=== PATIENT | female | born 1935 | race Caucasian/White ===

== ENCOUNTER 2016-08-20 00:39 | Inpatient (IN) | payer MEDICARE, OTHER ==
[2016-08-20] VITALS (18 sets, daily range): BP systolic 117–170; BP diastolic 54–79; PULSE 77–95; RESP 14–21; Ht 160 cm; Wt 54.2 kg
[~2016-08-20] VITALS: Ht 160 cm; Wt 54.2 kg
[2016-08-20] MEDS ORDERED: ONDANSETRON 4 MG INJ IV STA (00:41)
[2016-08-20] MEDS ORDERED: HYDROmorphONE 1 MG/ML SYG IV STA ×4 (00:41→03:52)
--- NOTE | 2016-08-20 00:59 | RADRPT ---
PROCEDURE: XR Chest. CLINICAL INDICATION: Fall, pain TECHNIQUE: Single frontal view of the chest was obtained. COMPARISON: None. FINDINGS: The cardiomediastinal silhouette is normal size. Pulmonary vasculature is within normal limits. Th ere is moderate aortic calcification. There is left mid lung atelectasis or scarring. There is min imal right base atelectasis. There are irregular densities projecting in the right mid lung, measur ing up to 3.2 cm and 1.3 cm, and a possible density in the left lower lung, approximately 1.4 cm.. No signs of pleural fluid or pneumothorax are seen. The osseous structures and soft tissues are unre markable. IMPRESSION: 1. Moderate aortic calcification. 2. No visualized fracture or pneumothorax. 3. Lobulated appearing densities projecting in the right midlung and left lower lung, up to 3.2 cm adjacent to the right hilum. These are nonspecific in appearance, possibly reflecting calcific pleu ral plaques. CT examination is suggested to exclude underlying parenchymal lesion. RPTAT: HBST .Fabricio Kim MD, Date Time Electronically viewed and signed by .Fabricio Kim MD, on 08/20/2016 00:59 .T/
[2016-08-20] MEDS ORDERED: ONDANSETRON 4 MG INJ IV ONE (01:00)
--- NOTE | 2016-08-20 01:16 | RADRPT ---
PROCEDURE: XR Hip. CLINICAL INDICATION: Fall, hip pain TECHNIQUE: 2 views of the left hip were performed. COMPARISON: None. FINDINGS: Intertrochanteric left femur fracture with approximate 90 degrees varus deformity. No left hip disl ocation is seen. IMPRESSION: Intertrochanteric left femur fracture with approximate 90 degrees varus deformity. RPTAT: HJES .Lj Stock MD, Date Time Electronically viewed and signed by .Lj Stock MD, on 08/20/2016 01:16 .S/
[2016-08-20] MEDS ORDERED: SOD CHLORIDE 0.9% 1,000 ML IV SCH (02:09)
--- NOTE | 2016-08-20 02:15 | ERA ---
ER Documentation Chief Complaint Date/Time DATE: 08/20/16 TIME: 02:13 Chief Complaint fall onto left hip rotation and shortening HPI This is a 81-year-old female who was walking to the couch prior to arrival and she lost her balance and tripped and fell to her left hip. The patient is complaining of sharp pain to her left hip is worse with movement. There is no head injury or loss of consciousness. Denies headache neck pain chest pain other extremity pain. She was brought in by EMS. ROS All systems reviewed and are negative except as per history of present illness. Allergies Allergies: Coded Allergies: No Known Allergy (Unverified , 08/20/16) PMhx/Soc History of Surgery: Yes ( hemorrhoid repair 1 week ago) Anesthesia Reaction: No Hx Neurological Disorder: No Hx Respiratory Disorders: Yes (lung CA) Hx Cardiac Disorders: No Hx Psychiatric Problems: No Hx Miscellaneous Medical Probl: Yes (stage 4 lung CA/lymphoma, DM) Hx Alcohol Use: No Hx Substance Use: No Hx Tobacco Use: No Smoking Status: Unknown if ever smoked FmHx Family History: No coronary disease Physical Exam Vitals Vital Signs Date Time Temp Pulse Resp B/P Pulse Ox O2 Delivery O2 Flow Rate FiO2 08/20/16 01:50 74 16 125/70 99 Nasal Cannula 3.0 08/20/16 01:06 69 28 130/74 96 Physical Exam Const: Well-developed, well-nourished Head: Atraumatic, normocephalic Eyes: Normal Conjunctiva, PERRLA, EOMI, normal sclera, no nystagmus ENT: Normal External Ears, Nose and Mouth, moist mucus membranes. Neck: Full range of motion. No meningismus, no lymphadenopathy. Resp: Clear to auscultation bilaterally, no wheezing, rhonchi, rales Cardio: Regular rate and rhythm, no murmurs, S1 S2 present Abd: Soft, non tender x 4, non distended. Normal bowel sounds, no guarding or rebound, no pulsitile abdominal masses or bruits Skin: No petechiae or rashes, no ecchymosis , no maculopapular rash Back: No midline or flank tenderness Ext: No cyanosis, or edema, FROM x 3, there is tenderness at the left hip, the left leg is externally rotated and shortened there is no move in the left hip due to pain, normal inspection, neurovascularly intact x 4 Neur: Awake and alert, STR 5/5 x 4, sensation intact x 4, no focal findings, cerebellum intact Psych: Normal Mood and Affect Results 24 hrs Current Medications Medications (Trade) Dose Ordered Sig/Michael Route PRN Reason Start Time Stop Time Status Last Admin Dose Admin Ondansetron HCl (Zofran Inj) 4 mg ONCE ONCE IV 08/20/16 01:00 08/20/16 01:01 DC Hydromorphone HCl (Dilaudid) 1 mg ONCE STAT IV 08/20/16 00:41 08/20/16 00:44 DC 08/20/16 01:03 Ondansetron HCl (Zofran Inj) 4 mg ONCE STAT IV 08/20/16 00:41 08/20/16 00:44 DC 08/20/16 01:04 Hydromorphone HCl (Dilaudid) 0.5 mg ONCE STAT IV 08/20/16 00:59 08/20/16 01:00 DC 08/20/16 01:05 Hydromorphone HCl 1 mg 1 mg ONCE STAT IV 08/20/16 01:25 08/20/16 01:26 DC 08/20/16 01:28 Sodium Chloride (NS) 1,000 ml @ 80 mls/hr [id number] IV 08/20/16 02:09 08/20/16 14:38 Ondansetron HCl (Zofran Inj) 4 mg BRIDGE ORDER PRN IV NAUSEA AND/OR VOMITING 08/20/16 02:30 08/21/16 02:29 Acetaminophen (Tylenol Tab) 650 mg ER BRIDGE PRN PO MILD PAIN/FEVER 08/20/16 02:30 08/21/16 02:29 Procedures/MDM EKG: Rate/Rhythm: Normal Sinus Rhythm,NL intervals QRS, ST, QT: NORMAL TN, QRS, QT] Impression: NORMAL EKG PROCEDURE: XR Hip. CLINICAL INDICATION: Fall, hip pain TECHNIQUE: 2 views of the left hip were performed. COMPARISON: None. FINDINGS: Intertrochanteric left femur fracture with approximate 90 degrees varus deformity. No left hip dislocation is seen. IMPRESSION: Intertrochanteric left femur fracture with approximate 90 degrees varus deformity. RPTAT: HJES .Lj Stock MD, MD Date Time Electronically viewed and signed by .Lj Stock MD, MD on 08/20/2016 01:16 .S/ CC: UYEN GUILLEN DO PROCEDURE: XR Chest. CLINICAL INDICATION: Fall, pain TECHNIQUE: Single frontal view of the chest was obtained. COMPARISON: None. FINDINGS: The cardiomediastinal silhouette is normal size. Pulmonary vasculature is within normal limits. There is moderate aortic calcification. There is left mid lung atelectasis or scarring. There is minimal right base atelectasis. There are irregular densities projecting in the right mid lung, measuring up to 3.2 cm and 1.3 cm, and a possible density in the left lower lung, approximately 1.4 cm.. No signs of pleural fluid or pneumothorax are seen. The osseous structures and soft tissues are unremarkable. IMPRESSION: 1. Moderate aortic calcification. 2. No visualized fracture or pneumothorax. 3. Lobulated appearing densities projecting in the right midlung and left lower lung, up to 3.2 cm adjacent to the right hilum. These are nonspecific in appearance, possibly reflecting calcific pleural plaques. CT examination is suggested to exclude underlying parenchymal lesion. 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 CONDE Departure Diagnosis: Primary Impression: Hip fracture, left Qualified Code: S72.002A - Hip fracture, left, closed, initial encounter Condition: Stable UYEN GUILLEN DO August 20, 2016 02:15
[2016-08-20] MEDS ORDERED: ACETAMINOPHEN 325 MG TAB PO PRN (02:30)
[2016-08-20] MEDS ORDERED: ONDANSETRON 4 MG INJ IV PRN ×3 (02:30→19:00)
[2016-08-20 03:43] LABS: ADD SCAN DIFF NO
[2016-08-20 03:54] LABS: BASOPHILS % 0.1 % (0.0-2.0); EOSINOPHILS # 0.1 10^3/ul (0.0-0.5); EOSINOPHILS % 1.3 % (0.0-7.0); HEMATOCRIT 33.9 % (37.0-47.0); HEMOGLOBIN 10.9 g/dl (12.0-16.0); LYMPHOCYTES # 0.6 10^3/ul (0.8-2.9); LYMPHOCYTES % 8.5 % (15.0-51.0); MEAN CORPUSCULAR HEMOGLOBIN 30.1 pg (29.0-33.0); MEAN CORPUSCULAR HGB CONC 32.2 g/dl (32.0-37.0); MEAN CORPUSCULAR VOLUME 93.6 fl (82.0-101.0); MEAN PLATELET VOLUME 9.6 fl (7.4-10.4); MONOCYTE # 0.4 10^3/ul (0.3-0.9); MONOCYTES % 5.9 % (0.0-11.0); NEUTROPHIL # 6.2 10^3/ul (1.6-7.5); NEUTROPHILS % 83.8 % (39.0-77.0); PLATELET COUNT 173 10^3/UL (140-415); RED BLOOD COUNT 3.62 10^6/ul (4.20-5.40); RED CELL DISTRIBUTION WIDTH 13.7 % (11.5-14.5); WHITE BLOOD COUNT 7.4 10^3/ul (4.8-10.8)
[2016-08-20 04:01] LABS: ALBUMIN 3.1 g/dl (3.3-4.9)
[2016-08-20 04:02] LABS: POTASSIUM 3.6 mmol/L (3.5-5.1)
[2016-08-20 04:03] LABS: INR 1.05; PROTIME 13.7 Sec (12.2-14.2); PT RATIO 1.1
[2016-08-20 04:04] LABS: BILIRUBIN,INDIRECT 0.1 mg/dl (0-1.1); BILIRUBIN,TOTAL 0.1 mg/dl (0.2-1.3); CREATININE 0.65 mg/dl (0.44-1.00); PARTIAL THROMBOPLASTIN TIME 27.3 Sec (25.0-35.0); TOTAL PROTEIN 5.8 g/dl (6.1-8.1)
[2016-08-20 04:05] LABS: CALCIUM 7.7 mg/dl (8.4-10.2)
[2016-08-20] MEDS ORDERED: HYDROmorphONE 1 MG/ML SYG IV PRN ×3 (05:30→19:00)
[2016-08-20] MEDS: morphine 4 MG/ML VIAL IV PRN (06:01)
--- NOTE | 2016-08-20 06:01 | HP ---
Date/Time of Note Date/Time of Note DATE: 08/20/16 TIME: 05:49 Assessment/Plan VTE Prophylaxis VTE Prophylaxis Intervention: SCD's Lines/Catheters Urinary Cath still in place: Yes Reason Cath still needed: other (indicate) Assessment/Plan Assessment/Plan IMPRESSION 1. Left hip fracture s/p mechanical fall 2. HTN 3. Diabetes 4. History of Lung cancer PLAN pain mgmt Awaiting Ortho eval, consulted in ER Will place a cardiology consult for clearance as needed. Adjust BP meds needed Insulin for glycemic control while in-house HPI/ROS Admit Date/Time Admit Date/Time August 20, 2016 at 02:09 ROS This is a 81-year-old female with hx of HTN, DM, lung cancer who presented to ER after tripping and falling at home. She was walking to to sit in a sofa when she tripped and fell landing to her left side experiencing pain in her hip area. She denied chest pain, palpitations, lightheadedness prior to fall. Denied head injury or loss of consciousness. When she presented to ER, she was found to have left hip fracture. . PMH/Family/Social Past Medical History Medical History: diabetes, hypertension, other (lung cancer) Past Surgical History Past Surgical Hx: other (cataract surgery) Social History Alcohol Use: none Smoking Status: Unknown if ever smoked Drug Use: none Exam/Review of Systems Vital Signs Vitals Vital Signs Date Time Temp Pulse Resp B/P Pulse Ox O2 Delivery O2 Flow Rate FiO2 08/20/16 05:45 Nasal Cannula 2.0 08/20/16 04:25 97.5 77 20 140/79 93 Exam Constitutional: alert, other (in some distress due to left hip pain) Head: atraumatic, normocephalic Eyes: EOMI, PERRL Respiratory: clear to auscultation, normal air movement Cardiovascular: nl pulses, regular rate and rhythm Gastrointestinal: non-tender, soft Musculoskeletal: other (left hip tenderness. Range of motion limited) Extremities: normal pulses Labs Result Diagram: 08/20/16 0320 08/20/16 0320 Medications Medications Current Medications Sodium Chloride (NS) 1,000 ml @ 80 mls/hr [id number] IV Last administered on t 02:22; Admin Dose 80 MLS/HR; Start 08/20/16 at 02:09; Stop 08/20/16 at 14:38 Morphine Sulfate (morphine) 4 mg Q4H PRN IV pain; Start 08/20/16 at 05:30; Status UNV Hydromorphone HCl (Dilaudid) 0.5 mg Q3 PRN IV PAIN- if morphine ineffective; Start 08/20/16 at 05:30; Status UNV Ondansetron HCl (Zofran Inj) 4 mg Q6H PRN IV NAUSEA AND/OR VOMITING; Start 08/20 at 05:30; Status UNV Insulin Glargine (Lantus) 10 unit DAILY@08 SC ; Start 08/20/16 at 08:00; Status UNV Miscellaneous Information (* Miscellaneous Pharmacy Order) HYPOGLYCEMIA PROTOCOL w... ONCE ONCE XX ; Start 08/20/16 at 05:30; Stop 08/20/16 at 05:31; Status UNV Miscellaneous Information (* Miscellaneous Pharmacy Order) Discontinue Glyburide , Glipizide,... ONCE ONCE XX ; Start 08/20/16 at 05:30; Stop 08/20/16 at 05:31; Status UNV Miscellaneous Information (* Miscellaneous Pharmacy Order) Discontinue all previ... ONCE ONCE XX ; Start 08/20/16 at 05:30; Stop 08/20/16 at 05:31; Status UNV Diagnostic Test (Pha) (Accu-Chek) XX ; Start 08/21/16 at 02:00; Status UNV LAUREN CONDE MD August 20, 2016 05:59
[2016-08-20] MEDS ORDERED: LORAZEPAM 2 MG INJ ONE (07:13)
[2016-08-20] MEDS ORDERED: LORAZEPAM 2 MG INJ IV ONE (07:30)
[2016-08-20] MEDS: INSULIN ASPART [NOVOLOG] 3 ML PEN SC SCH ×4 (08:10→21:00)
[2016-08-20] MEDS: HYDROmorphONE 1 MG/ML SYG IV STA ×2 (08:17→09:07)
[2016-08-20] MEDS: INSULIN GLARGINE [LANtus] 3 ML PEN SC SCH (08:50)
[2016-08-20 12:23] LABS: CREATINE KINASE 40 IU/L (23-200)
[2016-08-20 12:32] LABS: CK-MB 0.42 ng/ml (0.0-2.4)
[2016-08-20 12:35] LABS: TROPONIN-I < 0.012 ng/ml (0.00-0.12)
[2016-08-20] MEDS: DEXTROSE 5%-0.45% NACL 1,000 ML IV SCH ×2 (12:37→22:55)
[2016-08-20] MEDS ORDERED: KETOROLAC 30 MG INJ IV STA (12:41)
[2016-08-20] MEDS ORDERED: ALBUTEROL/IPRATROPIUM (NEB) 3 ML AMP HHN PRN (13:00)
[2016-08-20] MEDS: LORAZEPAM 2 MG INJ IV PRN ×2 (13:00→22:50)
[2016-08-20 14:57] LABS: CREATINE KINASE 194 IU/L (23-200)
[2016-08-20 15:07] LABS: CK-MB 1.62 ng/ml (0.0-2.4)
[2016-08-20] MEDS: HYDROmorphONE 1 MG/ML SYG IV PRN ×2 (15:12→21:07)
[2016-08-20 15:14] LABS: ADD UMIC YES; URINE BILIRUBIN (Dip) NEGATIVE (NEGATIVE); URINE BLOOD (Dip) 3+ (NEGATIVE); URINE COLOR LT. YELLOW (YELLOW); URINE GLUCOSE (Dip) NEGATIVE (NEGATIVE); URINE KETONES (Dip) NEGATIVE (NEGATIVE); URINE LEUKOCYTE ESTERASE (Dip) NEGATIVE (NEGATIVE); URINE NITRITE (Dip) NEGATIVE (NEGATIVE); URINE TOTAL PROTEIN (Dip) NEGATIVE (NEGATIVE); URINE UROBILINOGEN (Dip) 0.2 E.U./dL (0.1-1.0)
[2016-08-20 15:15] LABS: TROPONIN-I < 0.012 ng/ml (0.00-0.12)
[2016-08-20 15:26] LABS: BACTERIA,URINE RARE; SQUAMOUS EPITHELIAL CELL,UR OCCASIONAL
[2016-08-20] MEDS ORDERED: METHYLPREDNISOLONE 125 MG INJ IV ONE (17:00)
[2016-08-20] MEDS: DOCUSATE SODIUM 250 MG CAP PO SCH (17:00)
[2016-08-20] MEDS: ALBUTEROL/IPRATROPIUM (NEB) 3 ML AMP HHN SCH ×2 (17:00→21:35)
--- NOTE | 2016-08-20 17:20 | RADRPT ---
Echocardiogram Report Patient Name: SULMA COE Gender: Female Date: 1935 Study Date: 20-Aug-2016 Mangle Roll Operator: Yogi Monterroso [facility] Location: [address] Ref. Physician: DALIA KAUR Quality: Good Procedures: Transthoracic echocardiogram with complete 2D, M-Mode, and doppler examination. Indications: Pre-op. 2D/M Mode Doppler Measurement Value Normal Ranges Measurement Value Normal Ranges LVIDd 2D 4.8 3.5 - 5.6 cm AV Peak Daniel 1.9 m/sec LVIDs 2D 2.8 2.1 - 4.1 cm AV Peak PG 13.8 mmHg LVPWd 2D 0.7 0.6 - 1.1 cm AI Peak PG 62.0 mmHg IVSd 2D 0.6 0.6 - 1.1 cm AI Peak Daniel 3.9 m/sec AoR Diam 2D 2.5 2.0 - 3.7 cm AI PHT 373.6 msec EDV 2D 107.0 cm3 LVOT Peak Daniel 1.4 m/sec ESV 2D 21.0 cm3 LVOT Peak PG 7.5 mmHg LA Dimen 2D 2.7 2.3 - 4.0 cm MV E Peak Daniel 0.8 m/sec MV A Peak Daniel 1.1 m/sec MV E/A 0.7 MV Decel Time 224 msec MV Decel [place] 3 MV E/A 0.7 TR Peak Daniel 2.1 m/sec TR Peak PG 17.3 mmHg RVSP 20.0 mmHg Findings Left Ventricle: Normal left ventricular systolic function. Normal left ventricular cavity size. Normal left ventricular wall thickness. Ejection fraction is visually estimated at 65 %. Tissue Doppler/Mitral Doppler indices are consistent with impaired relaxation (Stage I diastolic dysfunction). Right Ventricle: Normal right ventricular size. Normal right ventricular systolic function. Left Atrium: The left atrium is normal in size. Right Atrium: The right atrium is normal in size. Mitral Valve: Normal appearance and function of the mitral valve with trace physiologic regurgitation. Aortic Valve: No hemodynamically significant aortic stenosis by doppler. Aortic cusps appear mildly calcified. Mild aortic valve regurgitation. Tricuspid Valve: Normal appearance of the tricuspid valve. Estimated peak PA systolic pressure 20 mmHg. There is mild tricuspid regurgitation. Pulmonic Valve: Pulmonic valve not well visualized. There is trace pulmonic regurgitation. Pericardium: Normal pericardium with no significant pericardial effusion. Aorta: Normal aortic root. IVC: Normal size and normal respiratory collapse consistent with normal right atrial pressure. Conclusions 1.Normal left ventricular systolic function. Normal left ventricular cavity size. Normal left ventricular wall thickness. Ejection fraction is visually estimated at 65 %. Tissue Doppler/Mitral Doppler indices are consistent with impaired relaxation (Stage I diastolic dysfunction). 2.Normal appearance and function of the mitral valve with trace physiologic regurgitation. 3.No hemodynamically significant aortic stenosis by doppler. Aortic cusps appear mildly calcified. Mild aortic valve regurgitation. 4.Normal appearance of the tricuspid valve. Estimated peak PA systolic pressure 20 mmHg. There is mild tricuspid regurgitation. 5.Normal size and normal respiratory collapse consistent with normal right atrial pressure. Electronically Signed By: Scotty Justice 20-Aug-2016 17:19:13 -0700 Patient Name: SULMA COE Study Date: 20-Aug-2016 [id number]
--- NOTE | 2016-08-20 17:27 | CONS ---
DATE OF ADMISSION: 08/20/2016 DATE OF CONSULTATION: 08/20/2016 TYPE OF CONSULTATION: Cardiology. REASON FOR CONSULTATION: Cardiovascular preop evaluation. SURGICAL PROBLEM: Hip fracture. MEDICAL PROBLEMS: Diabetes, hypertension and history of lung carcinoma. HISTORY OF PRESENT ILLNESS: Thank you for this referral. History obtained from the patient, kesha nash with multiple family members including the son, daughter and at the bedside, discussed with the staff and Dr. Camarillo. The patient is an 81-year-old female with history of "stage IV lung cancer" status post chemo, diabetes, hypertension who came to emergency room after a fall. Accordi ng to the patient and the family, the patient apparently was moving from one ___to the other one and probably has tripped and fell down. No syncope or presyncope per family. She has been in severe p ain. She has been scheduled for the surgery today. The patient denies any chest pain or pressure t o me at this time. Apparently, in the past 2 weeks, she has had "bronchitis," has been wheezing and short of breath. Exercise tolerance very limited and is not able to walk more than a block without stopping, mostly due to her "spinal injury" and back pain. She denies any history of cardiac disor lizz to me or history of anesthesia problems. Apparently has had surgery in the past 2 weeks for hem orrhoid surgery with no anesthesia complication per family's report. PAST MEDICAL HISTORY: Diabetes, hypertension, history of lung cancer stage IV, history of probably COPD, history of hemorrhoids, status post surgery. PAST SURGICAL HISTORY: Status post cataract surgery, hemorrhoid surgery. SOCIAL HISTORY: The patient has quit smoking. FAMILY HISTORY: Patient's father with coronary artery disease and HI. ALLERGIES: NO REPORTED ALLERGIES. MEDICATIONS: As per medication reconciliation, personally reviewed. REVIEW OF SYSTEMS: As above mentioned, although has back pain. PHYSICAL EXAMINATION: VITAL SIGNS: Temperature 98.6, heart rate of 95, blood pressure 125/68, respiration rate of 20, sat urating 93%. HEENT: Normocephalic, atraumatic. Thin female. Pupils are equal. GENERAL: Appears to be anxious, but in no acute distress. CARDIOVASCULAR: Regular rate and rhythm, systolic murmur. PULMONARY: With diffuse wheezes heard throughout the lungs. GASTROINTESTINAL: Soft, nontender. EXTREMITIES: With no significant lower extremity edema. NEUROLOGIC: Awake and alert. PSYCHIATRIC: Anxious and angry. LABORATORY: Sodium 139, potassium 3.6, BUN of 11, creatinine 0.65, glucose 163, hemoglobin A1c is 6 .6, albumin is 3.1. Troponin negative x2. WBC of 7.4, hemoglobin 10.9, platelets 173. Chest x-ray shows moderate aortic calcification, no visualized fracture or pneumothorax. Lobulated appearing d ensity projecting in the right mid lung and left lower lung. Hip x-ray shows intertrochanteric left femoral fracture. EKG was personally reviewed and on my personal review shows normal sinus rhythm, probably right atrial enlargement, otherwise no evidence of ischemia. Echocardiogram is still pend ing. ASSESSMENT AND PLAN: 1. Cardiovascular preop evaluation. 2. Left hip fracture. 3. Status post fall with no evidence of syncope per family's report. 4. Hypertension, under good control. 5. Diabetes, under reasonable control. 6. History of dyslipidemia. 7. History of chronic obstructive pulmonary disease with probably acute bronchitis and chronic obst ructive pulmonary disease exacerbation. 8. History of stage IV lung cancer. 9. Severe hip pain secondary to above. RECOMMENDATIONS: Echocardiogram is pending. It will be done and evaluated personally. Unless any significant contraindication is the seen on the echo, no further cardiac workup would be indicated p rior to the surgery. The patient has no signs or symptoms of congestive heart failure and denies an y anginal chest pain to me and it has no history of coronary artery disease. It was explained to th e patient and family member including the son and who were presents that the patient would b e at moderate risk of cardiovascular event due to her risk factors including advanced age and especi ally diabetes and her poor functional capacity. However, no further cardiac workup would be felt to be beneficial to the patient or would be expected to lower her risk of cardiovascular event. Kaleigh zacarias, however, does have severe pulmonary disease and actively wheezing. At this point, I do recommen d her to be evaluated by pulmonary and optimized from the pulmonary standpoint prior to the surgery. I have discussed the case with Dr. Camarillo, who will evaluate the patient from the pulmonary stand point. Thank you for this referral. We will continue to follow along with you. Dictated By: WILBERTO DARLING/LOBO Conf#: [id number] DID#: [id number] CC: LAUREN CONDE MD;*End*
[2016-08-20] MEDS ORDERED: MIDAZOLAM 1 MG/ML 2 ML INJ ONE ×2 (18:05)
[2016-08-20] MEDS ORDERED: DEXAMETHASONE 4 MG/ML 1 ML INJ ONE (18:57)
[2016-08-20] MEDS ORDERED: ONDANSETRON 4 MG INJ ONE (18:58)
[2016-08-20] MEDS ORDERED: LABETALOL HCL 20MG INJ IV PRN (19:00)
[2016-08-20] MEDS ORDERED: hydrALAzine 20 MG INJ IV PRN (19:00)
[2016-08-20] MEDS ORDERED: EPHEDrine SULFATE 50 MG/5 ML SYG IV PRN (19:00)
[2016-08-20] MEDS ORDERED: NALOXONE (0.4 MG/ML) INJ IV PRN (19:00)
[2016-08-20] MEDS ORDERED: MEPERIDINE 25 MG INJ IV PRN (19:00)
[2016-08-20] MEDS ORDERED: DIPHENHYDRAMINE 50 MG INJ IV PRN (19:00)
[2016-08-20] MEDS ORDERED: METOCLOPRAMIDE 10 MG INJ IV PRN (19:00)
[2016-08-20] MEDS ORDERED: FENTAnyl 50 MCG/ML VIAL IV PRN ×2 (19:00)
[2016-08-20] MEDS ORDERED: HYDROmorphONE (0.2 MG/ML) 10ML SYG IV PRN ×2 (19:00)
[2016-08-20] MEDS ORDERED: POLYMYXIN/BACITRACIN 1L IRRIG ONE (19:17)
[2016-08-20] MEDS: CEFAZOLIN 1 GM/50 ML (PMX) 50 ML IVPB SCH ×2 (19:39→20:00)
[2016-08-20] MEDS: SALMETEROL/FLUTICASONE 250/50 INHA INH SCH (21:06)
--- NOTE | 2016-08-20 21:52 | CONS ---
DATE OF ADMISSION: 08/20/2016 DATE OF CONSULTATION: TYPE OF CONSULTATION: Pulmonary. REASON FOR CONSULTATION: Preop evaluation. Thank you, Dr. Yost, for this consultation. HISTORY OF PRESENT ILLNESS: This is an 81-year-old lady who had a mechanical fall at home, sustaini ng severe pain in her left hip. X-ray confirmed left intertrochanteric femoral fracture with 90-deg ree varus deformity. The patient is now pending orthopedic surgery. I have been consulted for preo p evaluation. Upon further questioning, the patient states she had a significant tobacco history in the past, previously 2 packs per day, quit smoking in the early 1970s. 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 Per patient, she underwent treatment with Rituxan with no radiation with significant improvement in her overall condition. Since that time, she has had no recurrence, remains in remission. She states she does not require supplemental O2 on ambulation. Prior to this fall, she was able to walk at length without any respiratory limitations. She was recently prescri bed inhaler use for mild exertional dyspnea but has not seen a tile designer or had a chest x-ray ot her than recent admission x-ray here. PAST MEDICAL HISTORY: Includes: 1. Remote extensive tobacco history. 2. Lymphoma. 3. Hypertension. 4. Hyperlipidemia. MEDICATIONS: Per chart. ALLERGIES: NONE. SOCIAL HISTORY: She is an ex-smoker. No alcohol, no history of drug use. FAMILY HISTORY: Noncontributory. SYSTEMS REVIEW: Twelve-point review of systems negative other than that mentioned above. PHYSICAL EXAMINATION: GENERAL: Elderly-appearing lady, appears comfortable at rest. No acute distress. VITAL SIGNS: Currently afebrile, pulse is 90, blood pressure 125/68, O2 saturation 96% on 2 L nasal cannula. NECK: Supple. No JVD, lymphadenopathy. CARDIAC: S1, S2. No added sounds or murmurs. CHEST: Diminished air entry bilaterally. ABDOMEN: Soft, nontender. No guarding, rebound. EXTREMITIES: No cyanosis, clubbing, edema. NEUROLOGIC: Generalized weakness. LABORATORY DATA: White count 7.4, hemoglobin 10.9, platelets of 173. BUN 11, creatinine 0.65. INR 1.05. EKG showed no acute abnormalities. Chest x-ray was reviewed, shows moderate aortic calcification, lobulated appearance in the right mid lung and left lower lobe, possible calcified pleural plaques. IMPRESSION AND PLAN: 1. Mechanical fall with hip fracture. 2. History of lymphoma. 3. Status post chemotherapy. 4. History of diabetes. The patient will require: 1. The patient is stable from pulmonary standpoint to proceed with orthopedic surgery. At this poi nt, no further optimization of her respiratory status is likely possible other than continuing curre nt bronchodilator therapy. 2. Awaiting cardiology clearance preoperatively. 3. Postoperatively, I explained to the family there is a chance that the patient will come out on m echanical ventilation, requiring mechanical ventilation hopefully only overnight with plan to safely extubate tomorrow. Given her extensive prior tobacco history and history of pulmonary malignancy, there is a chance that immediate extubation may not be possible. Family understands and patient is aware. Dictated By: JOHAN SINGH/LOBO Conf#: [id number] DID#: [id number]
[2016-08-21] VITALS: BP 138/76; PULSE 80; RESP 16
[2016-08-21] MEDS: ALBUTEROL/IPRATROPIUM (NEB) 3 ML AMP HHN SCH ×6 (01:00→21:00)
[2016-08-21] MEDS: ACCU-CHEK XX SCH (02:00)
[2016-08-21] MEDS: morphine 4 MG/ML VIAL IV PRN ×2 (02:34→20:46)
[2016-08-21] MEDS: HYDROmorphONE 1 MG/ML SYG IV PRN ×3 (04:49→13:27)
[2016-08-21] MEDS: CEFAZOLIN 1 GM/50 ML (PMX) 50 ML IVPB SCH ×3 (05:36→21:07)
[2016-08-21 07:06] LABS: ADD SCAN DIFF NO
[2016-08-21 07:16] LABS: HEMATOCRIT 30.7 % (37.0-47.0); HEMOGLOBIN 9.9 g/dl (12.0-16.0); LYMPHOCYTES # 0.8 10^3/ul (0.8-2.9); LYMPHOCYTES % 15.6 % (15.0-51.0); MEAN CORPUSCULAR HEMOGLOBIN 29.6 pg (29.0-33.0); MEAN CORPUSCULAR HGB CONC 32.2 g/dl (32.0-37.0); MEAN CORPUSCULAR VOLUME 91.6 fl (82.0-101.0); MEAN PLATELET VOLUME 9.8 fl (7.4-10.4); MONOCYTE # 0.4 10^3/ul (0.3-0.9); NEUTROPHIL # 3.7 10^3/ul (1.6-7.5); NEUTROPHILS % 75.2 % (39.0-77.0); PLATELET COUNT 154 10^3/UL (140-415); RED BLOOD COUNT 3.35 10^6/ul (4.20-5.40); RED CELL DISTRIBUTION WIDTH 13.7 % (11.5-14.5); WHITE BLOOD COUNT 4.9 10^3/ul (4.8-10.8)
[2016-08-21 07:25] LABS: ALBUMIN/GLOBULIN RATIO 1.2; BILIRUBIN,INDIRECT 0.1 mg/dl (0-1.1); BILIRUBIN,TOTAL 0.1 mg/dl (0.2-1.3); CALCIUM 7.8 mg/dl (8.4-10.2); CREATININE 0.51 mg/dl (0.44-1.00); POTASSIUM 3.8 mmol/L (3.5-5.1); TOTAL PROTEIN 5.5 g/dl (6.1-8.1)
[2016-08-21 07:39] LABS: MAGNESIUM 1.5 mg/dl (1.7-2.5); PHOSPHORUS 3.5 mg/dl (2.5-4.9)
[2016-08-21] MEDS: HYDROCODONE/APAP (5/325) TAB PO PRN ×3 (08:15→21:09)
[2016-08-21] MEDS: DOCUSATE SODIUM 250 MG CAP PO SCH (08:15)
[2016-08-21 08:18] VITALS: BP 176/77; RESP 18
[2016-08-21] MEDS: INSULIN GLARGINE [LANtus] 3 ML PEN SC SCH (08:21)
[2016-08-21] MEDS: SALMETEROL/FLUTICASONE 250/50 INHA INH SCH ×2 (08:22→20:51)
[2016-08-21] MEDS: INSULIN ASPART [NOVOLOG] 3 ML PEN SC SCH ×4 (08:22→20:51)
[2016-08-21 09:14] LABS: AADO2 Arterial 62.1 mmHg (7.0-24.0); Allen Test ACCEPTAB; Arterial Base Excess -0.5 mmol/L (-3.0-3); Arterial COHb 0.3 % (0.0-3.0); Arterial Fraction of Oxyhgb 96.3 % (93.0-99.0); Arterial HCO3 23.1 mmol/L (22.0-26.0); Arterial MetHb 0.3 % (0.0-1.5); Arterial Total Hemglobin 11.2 g/dl (12.0-18.0); MODE NASAL CANNULA
[2016-08-21] MEDS ORDERED: ENOXAPARIN 30 MG/0.3 ML SYG SC SCH (10:30)
--- NOTE | 2016-08-21 10:30 | CONS ---
Date/Time of Note Date/Time of Note DATE: 08/21/16 TIME: 10:28 Assessment/Plan Assessment/Plan Additional Assessment/Plan HEENT exam is; supple neck, no JVD. No lymphadenopathy. Midline trachea. No thyromegaly. Pharynx is clear. Chest examination; clear to auscultation. No added sound. S1-S2 audible, no murmurs. Regular rhythm. Abdomen examination; soft, non-distended. No organomegaly. Bowel sounds audible. Extremity examination; no peripheral edema. There is dressing applied over left hip area. 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 Assessment recommendations; 1. Patient admitted with left femoral neck fracture status post ORIF under spinal anesthesia yesterday with stable postop course. 2. History of lymphoma. 3. History of hypertension. Next #3. History of prior smoking. Continue current treatment. Patient responding well to current treatment regimen. We will sign off. Thanks for the referral. Consultation Date/Type/Reason Admit Date/Time August 20, 2016 at 02:09 Initial Consult Date Type of Consultation: Pulmonary 24 HR Interval Summary Free Text/Dictation Patient doing very well. Underwent left hip open reduction and fixation under spinal anesthesia. Complains of mild pain at surgical site. Denies any shortness of breath, fever, abdominal pain, nausea vomiting. General exam; elderly lady, awake alert currently in no distress. Exam/Review of Systems Vital Signs Vitals Vital Signs Date Time Temp Pulse Resp B/P Pulse Ox O2 Delivery O2 Flow Rate FiO2 08/21/16 08:18 98.4 87 18 176/77 98 08/21/16 05:19 3.0 08/21/16 05:19 Nasal Cannula Intake and Output 08/20/16 08/20/16 08/21/16 15:00 23:00 07:00 Intake Total 1650 ml 1080 ml Output Total 600 ml 480 ml Balance 1050 ml 600 ml Results Result Diagram: 08/21/16 0630 08/21/16 0630 Results 24 hrs Laboratory Tests Test 08/20/16 11:52 08/20/16 13:14 08/20/16 13:45 08/20/16 17:05 Bedside Glucose 111 129 Urine Color LT. YELLOW Urine Clarity CLEAR Urine pH 5.0 Urine Specific [place] >=1.030 H Urine Ketones NEGATIVE Urine Nitrite NEGATIVE Urine Bilirubin NEGATIVE Urine Urobilinogen 0.2 E.U./dL Urine Leukocyte Esterase NEGATIVE Urine Microscopic RBC 10-25 Urine Microscopic WBC 2-5 Urine Squamous Epithelial Cells OCCASIONAL Urine Bacteria RARE Urine Hemoglobin 3+ H Urine Glucose NEGATIVE Urine Total Protein NEGATIVE Creatine Kinase 194 # Creatine Kinase Index 0.8 Creatinine Kinase MB (Mass) 1.62 Troponin I < 0.012 Test 08/20/16 21:05 08/21/16 06:30 08/21/16 07:00 08/21/16 08:02 Bedside Glucose 177 178 White Blood Count 4.9 # Red Blood Count 3.35 L Hemoglobin 9.9 L Hematocrit 30.7 L Mean Corpuscular Volume 91.6 Mean Corpuscular Hemoglobin 29.6 Mean Corpuscular Hemoglobin Concent 32.2 Red Cell Distribution Width 13.7 Platelet Count 154 Mean Platelet Volume 9.8 Neutrophils % 75.2 Lymphocytes % 15.6 Monocytes % 9.0 Eosinophils % 0.0 Basophils % 0.0 Nucleated Red Blood Cells % 0.0 Neutrophils # 3.7 Lymphocytes # 0.8 Monocytes # 0.4 Eosinophils # 0.0 Basophils # 0.0 Nucleated Red Blood Cells # 0.0 Sodium Level 131 L Potassium Level 3.8 Chloride Level 104 Carbon Dioxide Level 24 Anion Gap 7 L Blood Urea Nitrogen 8 Creatinine 0.51 Glucose Level 193 Calcium Level 7.8 L Phosphorus Level 3.5 Magnesium Level 1.5 L Total Bilirubin 0.1 L Direct Bilirubin 0.00 Indirect Bilirubin 0.1 Aspartate Amino Transf (AST/SGOT) 20 Alanine Aminotransferase (ALT/SGPT) 34 Alkaline Phosphatase 52 Total Protein 5.5 L Albumin 3.0 L Globulin 2.50 Albumin/Globulin Ratio 1.20 Blood Gas Specimen Source Blood arterial Arterial Blood Date Drawn 08/21/2016 8:45:37 AM Arterial Blood pH (Temp corrected) 7.444 Arterial Blood pCO2 (Temp correct) 34.5 L Arterial Blood pO2 (Temp corrected) 89.6 Arterial Blood HCO3 23.1 Arterial Blood Base Excess -0.5 Arterial Blood Oxygen Saturation 96.9 Ramiro Test ACCEPTAB Arterial Blood Gas Puncture Site Left Radial Arterial Blood Carboxyhemoglobin 0.3 Arterial Blood Methemoglobin 0.3 Blood Gas A-a O2 Differential 62.1 H Oxyhemoglobin Percent 96.3 Total Hemoglobin 11.2 L Blood Gas Temperature 37.0 Blood Gas Modality NASAL CANNULA FiO2 27.0 Blood Gas Notified Whom JLD Blood Gas Notified Time 08/21/2016 9:14:11 AM Medications Medications Current Medications Morphine Sulfate (morphine) 4 mg Q4H PRN IV pain Last administered on 08/21/16 02:34; Admin Dose 4 MG; Start 08/20/16 at 05:30 Ondansetron HCl (Zofran Inj) 4 mg Q6H PRN IV NAUSEA AND/OR VOMITING; Start 08/20 at 05:30 Insulin Glargine (Lantus) 10 unit DAILY@08 SC Last administered on 08/21/16 08: 21; Admin Dose 10 UNIT; Start 08/20/16 at 08:00 Diagnostic Test (Pha) 1 ea 1 ea 02 XX ; Start 08/21/16 at 02:00 Dextrose/Sodium Chloride (D5-1/2ns) 1,000 ml @ 50 mls/hr Q20H IV Last administered on 08/20/16 22:55; Admin Dose 50 MLS/HR; Start 08/20/16 at 12:00 Hydromorphone HCl (Dilaudid) 1 mg Q4H PRN IV PAIN- if morphine ineffective Last administered on 08/21/16 09:25; Admin Dose 1 MG; Start 08/20/16 at 16:00; Stop 08/21/16 at 18:00 Lorazepam (Ativan) 1 mg Q8H PRN IV anxiety Last administered on 08/20/16 22:50 ; Admin Dose 1 MG; Start 08/20/16 at 13:00 Salmeterol Xinafoate/ Fluticasone (Advair 250/50 Diskus) 1 inh BID INH Last administered on 08/21/16 08:22; Admin Dose 1 INH; Start 08/20/16 at 21:00 Acetaminophen/ Hydrocodone Bitart ([place] (5/325)) 1 tab Q6H PRN PO PAIN Last administered on 08/21/16 08:15; Admin Dose 1 TAB; Start 08/20/16 at 17:00 Docusate Sodium (Colace) 250 mg DAILY PO Last administered on 08/21/16 08:15; Admin Dose 250 MG; Start 08/20/16 at 17:00 Hydromorphone HCl (Dilaudid) 0.2 mg Q2H PRN IV PAIN LEVEL 1-5; Start 08/20/16 at 19:00; Stop 08/21/16 at 18:00 Naloxone HCl 0.2 mg 0.2 mg Q2M PRN IV FOR RESP RATE 8 OR LESS; Start 08/20/16 at 19:00; Stop 08/21/16 at 18:00 Cefazolin Sodium 50 ml @ 100 mls/hr Q8 IVPB Last administered on 08/21/16t 05: 36; Admin Dose 100 MLS/HR; Start 08/20/16 at 19:30 Magnesium Sulfate (Magnesium Sulfate 2 Gm/50 ml) 50 ml @ 25 mls/hr ONCE ONCE IVPB ; Start 08/21/16 at 11:30; Stop 08/21/16 at 13:29 Enoxaparin Sodium (Lovenox) 30 mg DAILY SC ; Start 08/21/16 at 10:30 MELODY TSE August 21, 2016 10:30
[2016-08-21] MEDS ORDERED: ALPRAZOLAM 0.25 MG TAB PO ONE (11:00)
[2016-08-21] MEDS ORDERED: MAGNESIUM SULFATE 2 GM/50 ML 50 ML IVPB ONE (11:30)
--- NOTE | 2016-08-21 12:33 | RADRPT ---
PROCEDURE: Intraoperative imaging of the left hip with fluoroscopy. CLINICAL INDICATION: Left hip pain. Intraoperative. TECHNIQUE: 6 images of the left hip were obtained in the operating room with an image intensifier. No radiologist was in attendance. COMPARISON: 08/20/2016. FINDINGS: Images demonstrate open reduction and internal fixation of the intertrochanteric fracture of the lef t hip with a francisco in the shaft of the femur and a screw in the neck of the femur. IMPRESSION: 1. Satisfactory intraoperative imaging of the left hip. RPTAT: QQ .Derrick Barajas MD, MD Date Time Electronically viewed and signed by .Derrick Barajas MD, MD on 08/21/2016 12:33 .R/
--- NOTE | 2016-08-21 14:06 | RADRPT ---
PROCEDURE: XR Chest. CLINICAL INDICATION: Pneumonia and CHF. TECHNIQUE: Chest x-ray, single view. COMPARISON: 08/20/2016. FINDINGS: The cardiac silhouette is magnified and unchanged in size. Aortic arch atherosclerotic calcificatio n is present. Faint nodular densities are seen within both lungs and are unchanged. There is no ev idence of new pulmonary parenchymal abnormality. Pulmonary vascularity is within normal limits. Sk eletal structures and upper abdomen are unremarkable. IMPRESSION: Faint nodular densities within the lungs, unchanged. These likely correspond to the parenchymal abno rmalities reported on past PET examinations. RPTAT: HLST .Eri Hedrick MD, MD Date Time Electronically viewed and signed by .Eri Hedrick MD, MD on 08/21/2016 14:06 .T/
--- NOTE | 2016-08-21 14:52 | PN ---
Date/Time of Note Date/Time of Note DATE: 08/21/16 TIME: 14:48 Assessment/Plan VTE Prophylaxis VTE Prophylaxis Intervention: LMWH Lines/Catheters IV Catheter Type (from Nrs): Peripheral IV Urinary Cath still in place: Yes Reason Cath still needed: other (indicate) Assessment/Plan Assessment/Plan IMPRESSION 1. Left hip fracture s/p mechanical fall s/p ORIF 08/20/16 2. HTN : suboptimal control 3. Diabetes insulin dependent 4. Stage 4 Lung cancer 5. Severe anxiety d/o 6. Previous Smoker PLAN * Start oral antianxiety meds * d/w ortho when we can commence PT * Patient is open to the idea of acute rehab * Continue current mgt and supportive care. Extensive time spent addressing myriad of issues and trying to calm patient down. Subjective 24 Hr Interval Summary Free Text/Dictation Multiple non specific complaints very anxious wants more pain meds wants stiles removed Open to the idea of acute rehab Exam/Review of Systems Vital Signs Vitals Vital Signs Date Time Temp Pulse Resp B/P Pulse Ox O2 Delivery O2 Flow Rate FiO2 08/21/16 13:55 98 22 94 21 08/21/16 10:44 Nasal Cannula 08/21/16 08:18 98.4 176/77 08/21/16 05:19 3.0 Intake and Output 08/20/16 08/20/16 08/21/16 14:59 22:59 06:59 Intake Total 1650 ml 1080 ml Output Total 600 ml 480 ml Balance 1050 ml 600 ml Exam Constitutional: alert, frail, anxious +++ Head: atraumatic, normocephalic Eyes: EOMI, PERRL Respiratory: clear to auscultation, normal air movement Cardiovascular: nl pulses, regular rate and rhythm Gastrointestinal: non-tender, soft Musculoskeletal: other (left hip tenderness. Range of motion limited, bandages over surgical scar clean and dry Extremities: normal pulses Results Result Diagram: 08/21/16 0630 08/21/16 0630 Results 24 hrs Laboratory Tests Test 08/20/16 17:05 08/20/16 21:05 08/21/16 06:30 08/21/16 07:00 Bedside Glucose 129 177 White Blood Count 4.9 # Red Blood Count 3.35 L Hemoglobin 9.9 L Hematocrit 30.7 L Mean Corpuscular Volume 91.6 Mean Corpuscular Hemoglobin 29.6 Mean Corpuscular Hemoglobin Concent 32.2 Red Cell Distribution Width 13.7 Platelet Count 154 Mean Platelet Volume 9.8 Neutrophils % 75.2 Lymphocytes % 15.6 Monocytes % 9.0 Eosinophils % 0.0 Basophils % 0.0 Nucleated Red Blood Cells % 0.0 Neutrophils # 3.7 Lymphocytes # 0.8 Monocytes # 0.4 Eosinophils # 0.0 Basophils # 0.0 Nucleated Red Blood Cells # 0.0 Sodium Level 131 L Potassium Level 3.8 Chloride Level 104 Carbon Dioxide Level 24 Anion Gap 7 L Blood Urea Nitrogen 8 Creatinine 0.51 Glucose Level 193 Calcium Level 7.8 L Phosphorus Level 3.5 Magnesium Level 1.5 L Total Bilirubin 0.1 L Direct Bilirubin 0.00 Indirect Bilirubin 0.1 Aspartate Amino Transf (AST/SGOT) 20 Alanine Aminotransferase (ALT/SGPT) 34 Alkaline Phosphatase 52 Total Protein 5.5 L Albumin 3.0 L Globulin 2.50 Albumin/Globulin Ratio 1.20 Blood Gas Specimen Source Blood arterial Arterial Blood Date Drawn 08/21/2016 8:45:37 AM Arterial Blood pH (Temp corrected) 7.444 Arterial Blood pCO2 (Temp correct) 34.5 L Arterial Blood pO2 (Temp corrected) 89.6 Arterial Blood HCO3 23.1 Arterial Blood Base Excess -0.5 Arterial Blood Oxygen Saturation 96.9 Ramiro Test ACCEPTAB Arterial Blood Gas Puncture Site Left Radial Arterial Blood Carboxyhemoglobin 0.3 Arterial Blood Methemoglobin 0.3 Blood Gas A-a O2 Differential 62.1 H Oxyhemoglobin Percent 96.3 Total Hemoglobin 11.2 L Blood Gas Temperature 37.0 Blood Gas Modality NASAL CANNULA FiO2 27.0 Blood Gas Notified Whom JLD Blood Gas Notified Time 08/21/2016 9:14:11 AM Test 08/21/16 08:02 08/21/16 11:47 Bedside Glucose 178 127 Medications Medications Current Medications Morphine Sulfate (morphine) 4 mg Q4H PRN IV pain Last administered on 08/21/16 02:34; Admin Dose 4 MG; Start 08/20/16 at 05:30 Ondansetron HCl (Zofran Inj) 4 mg Q6H PRN IV NAUSEA AND/OR VOMITING; Start 08/20 at 05:30 Insulin Glargine (Lantus) 10 unit DAILY@08 SC Last administered on 08/21/16 08: 21; Admin Dose 10 UNIT; Start 08/20/16 at 08:00 Diagnostic Test (Pha) 1 ea 1 ea 02 XX ; Start 08/21/16 at 02:00 Dextrose/Sodium Chloride (D5-1/2ns) 1,000 ml @ 50 mls/hr Q20H IV Last administered on 08/20/16 22:55; Admin Dose 50 MLS/HR; Start 08/20/16 at 12:00 Hydromorphone HCl (Dilaudid) 1 mg Q4H PRN IV PAIN- if morphine ineffective Last administered on 08/21/16 13:27; Admin Dose 1 MG; Start 08/20/16 at 16:00; Stop 08/21/16 at 18:00 Lorazepam (Ativan) 1 mg Q8H PRN IV anxiety Last administered on 08/20/16 22:50 ; Admin Dose 1 MG; Start 08/20/16 at 13:00 Salmeterol Xinafoate/ Fluticasone (Advair 250/50 Diskus) 1 inh BID INH Last administered on 08/21/16 08:22; Admin Dose 1 INH; Start 08/20/16 at 21:00 Acetaminophen/ Hydrocodone Bitart ([place] (5/325)) 1 tab Q6H PRN PO PAIN Last administered on 08/21/16 14:09; Admin Dose 1 TAB; Start 08/20/16 at 17:00 Docusate Sodium (Colace) 250 mg DAILY PO Last administered on 08/21/16 08:15; Admin Dose 250 MG; Start 08/20/16 at 17:00 Hydromorphone HCl (Dilaudid) 0.2 mg Q2H PRN IV PAIN LEVEL 1-5; Start 08/20/16 at 19:00; Stop 08/21/16 at 18:00 Naloxone HCl 0.2 mg 0.2 mg Q2M PRN IV FOR RESP RATE 8 OR LESS; Start 08/20/16 at 19:00; Stop 08/21/16 at 18:00 Cefazolin Sodium (Ancef 1 Gm/50 ml (Pmx)) 50 ml @ 100 mls/hr Q8 IVPB Last administered on 08/21/16 14:45; Admin Dose 100 MLS/HR; Start 08/20/16 at 19:30 Enoxaparin Sodium (Lovenox) 30 mg DAILY SC Last administered on 08/21/16t 10:30 ; Admin Dose 30 MG; Start 08/21/16 at 10:30 DALIA KAUR August 21, 2016 14:52
[2016-08-21] MEDS: LORAZEPAM 2 MG INJ IV PRN (15:05)
[2016-08-21] MEDS ORDERED: HALOPERIDOL 5 MG INJ IM ONE (16:30)
--- NOTE | 2016-08-21 17:38 | OPR ---
DATE OF OPERATION: 08/20/2016 SURGEON: Kayleigh Dodson MD ANESTHESIA: General PREOPERATIVE DIAGNOSIS: Left hip intertrochanteric fracture. POSTOPERATIVE DIAGNOSIS: Left hip intertrochanteric fracture. COMPLICATIONS: None. DESCRIPTION OF PROCEDURE: The patient taken to the operating room and a spinal block given followed by general anesthesia. The patient carefully positioned on the fracture table with padding of all extremities. The left hip prepped and draped in usual sterile manner. Two incisions were made, 1 p roximal to the trochanter. A guide pin was inserted into the tip of the trochanter. The canal was reamed to size 12 and a 10 mm nail was placed satisfactorily. A [employer] Intertan nail was used at 38 cm in length. The guide pin inserted into the center of the femoral head under AP and latera l visualization and a locking lag screw placed in the center of the head and locked in place. Final x-ray was satisfactory in the AP and lateral views. Fracture reduced anatomically. Wound irrigate d, hemostasis obtained. Fascia closed with #1 Vicryl suture, skin closed with vickey. Compression bandage applied. Anesthetic reversed. The patient taken to recovery in stable condition. Dictated By: KAYLEIGH MOTNES/LOBO Conf#: [id number] DID#: [id number]
--- NOTE | 2016-08-21 17:44 | OPR ---
DATE OF OPERATION: PREOPERATIVE DIAGNOSIS: Left hip pain. 81-year-old female who sustained a ground-level fall, prese nted with pain in the left hip and inability to move the leg and ambulate. The skin is intact. Roddy rovascular status intact. Compartments are soft. X-rays reveal a displaced intertrochanteric fract ure. Proposed surgery would be a left hip locked intramedullary nailing. The risks and complicati ons reviewed extensively with the patient and family, the brother and the children. The patient agr ees to proceed with the surgery. Dictated By: MIRANDA MONTES/LOBO Conf#: [id number] DID#: [id number]
[2016-08-21 19:54] VITALS: BP 157/70; RESP 20
[2016-08-21] MEDS: DEXTROSE 5%-0.45% NACL 1,000 ML IV SCH (20:00)
[2016-08-21] MEDS: ALPRAZOLAM 0.25 MG TAB PO SCH (20:46)
--- NOTE | 2016-08-22 00:12 | RADRPT ---
PROCEDURE: CT Brain without contrast. CLINICAL INDICATION: Fall. Headache. TECHNIQUE: A multiplanar CT of the brain was performed on a CT scanner utilizing axial imaging fro m the skull base through the vertex without IV contrast. The CTDIvol is 45.01 mGy and the DLP is 72 0.23 mGycm. One or more of the following dose reduction techniques were utilized: Automated exposu re control, adjustment of the mA and/or kV according to patient size, use of iterative reconstructio n technique. COMPARISON: None FINDINGS: No evidence of intracranial hemorrhage or abnormal extra-axial fluid collection. Mild periventricular and subcortical white matter low attenuation compatible with sequelae of chroni c microvascular ischemic injury. Right caudate nucleus focus of low attenuation which may reflect ch ronic lacunar infarct. The brain parenchyma is otherwise normal attenuation and morphology with pres ervation of celis white differentiation. The ventricles and subarachnoid spaces are prominent compati ble with age appropriate volume loss. Atherosclerotic calcification of the internal carotid and vertebral arteries. The basal cisterns, posterior fossa contents, brainstem, craniocervical junction, orbits, pituitary axis, paranasal sinuses, mastoid air cells, and calvarium are unremarkable. IMPRESSION: 1. No intracranial hemorrhage or acute intracranial abnormality. 2. Mild chronic microvascular ischemic change. 3. Early ischemic injury may be occult to CT imaging and diffusion weighted MRI may be considered a s clinically warranted. RPTAT:AAJJ Physician Karen Date Time Electronically viewed and signed by Physician Karen on 08/22/2016 00:12 BRITTANY/
--- NOTE | 2016-08-22 00:14 | RADRPT ---
PROCEDURE: Bilateral knee x-ray CLINICAL INDICATION: Fall. Knee pain TECHNIQUE: AP, lateral and oblique views of the bilateral knees were obtained. COMPARISON: None FINDINGS: Right knee: There is normal mineralization. No acute fracture or dislocation is seen. There is no joint effusion. Chondrocalcinosis of the menisci. There are no significant degenerative changes. There is no significant soft tissue swelling. Left knee: There is normal mineralization. Intramedullary francisco in place in the left femur No acute fracture or dislocation is seen. There is no joint effusion. Chondrocalcinosis of the menisci. There are no significant degenerative changes. There is no significant soft tissue swelling. IMPRESSION: 1. No fracture or dislocation of the right knee. Chondrocalcinosis. 2. No fracture or dislocation of the left knee. Chondrocalcinosis. RPTAT:AAJJ Physician Karen Date Time Electronically viewed and signed by Physician Karen on 08/22/2016 00:14 BRITTANY/
--- NOTE | 2016-08-22 00:16 | RADRPT ---
PROCEDURE: XR Hip. CLINICAL INDICATION: Fall. TECHNIQUE: AP and frog lateral views of the left hip were performed. COMPARISON: None. FINDINGS: Left medullary francisco and the nail in place no new or acute left or right hip fracture degenerative christine nges of the right hip joint. Findings suggestive of chronic left pelvic fracture deformity. No acu te pelvic fracture seen. IMPRESSION: Intact left hip fail intramedullary francisco. No evidence of acute hip or pelvic fracture. RPTAT:AAJJ Physician Karen Date Time Electronically viewed and signed by Physician Karen on 08/22/2016 00:15 BRITTANY/
[2016-08-22] MEDS: ALBUTEROL/IPRATROPIUM (NEB) 3 ML AMP HHN SCH ×6 (00:51→20:09)
[2016-08-22] MEDS: ACCU-CHEK XX SCH (01:45)
[2016-08-22] MEDS: morphine 4 MG/ML VIAL IV PRN ×3 (02:30→12:24)
[2016-08-22] MEDS: DEXTROSE 5%-0.45% NACL 1,000 ML IV SCH ×2 (03:45→17:47)
[2016-08-22] MEDS: LORAZEPAM 2 MG INJ IV PRN ×2 (04:45→13:06)
--- NOTE | 2016-08-22 05:21 | PN ---
DATE: 08/21/2016 CARDIOLOGY FOLLOWUP SUBJECTIVE: Discussed with the staff, discussed with Dr. Chiang. Discussed with the patient's son at the bedside. Patient with no chest pain or pressure. Breathing has significantly improved, still complain of hip pain status post surgery yesterday. MEDICATIONS: Reviewed as per medication reconciliation, was personally reviewed. PHYSICAL EXAMINATION: VITAL SIGNS: Temperature 98.4, heart rate of 87, blood pressure 170/77, respiration rate of 18, sat urating 98%. HEENT: Normocephalic, atraumatic. GENERAL: Thin female. Does not appear to be in no acute distress. Pupils are equal and round. CARDIOVASCULAR: Regular rate and rhythm, systolic murmur. PULMONARY: With very minimal wheezes now. Significantly improved compared to yesterday. GASTROINTESTINAL: Soft, nontender. EXTREMITIES: Status post left hip surgery. No significant bleeding or ecchymosis noted. NEUROLOGIC: Awake, alert x3. PSYCHIATRIC: Appears to be anxious. LABORATORY: WBC of 4.9, hemoglobin 9.9, platelet 154. Sodium 131, potassium 3.8, BUN of 8, creatin ine 0.55, glucose 193. Albumin is 3. ABG shows pH of 7.44, pCO2 of 34, pO2 of 89. ASSESSMENT AND PLAN: 1. Cardiovascular preop evaluation. 2. Hip fracture status post surgery now. 3. Diabetes. 4. Chronic obstructive pulmonary disease. 5. Lung cancer. 6. History of dyslipidemia. 7. Hypertension, most likely secondary to the pain now. RECOMMENDATIONS: Pain management as per ortho and internal medicine. Echocardiogram was personally reviewed, which showed normal LV systolic function with only mild AI. Diabetic management will be continued. Postop care to be continued. DVT prophylaxis as per surgery and Internal Medicine. Dictated By: WILBERTO DIEGO MD AV/NTS Conf#: [id number] DID#: [id number] CC: JOHAN CHIANG MD; DALIA KAUR MD;*End*
[2016-08-22] MEDS: CEFAZOLIN 1 GM/50 ML (PMX) 50 ML IVPB SCH ×2 (05:28→15:46)
[2016-08-22 07:10] LABS: ADD SCAN DIFF NO
[2016-08-22 07:14] LABS: EOSINOPHILS % 0.4 % (0.0-7.0); HEMATOCRIT 28.4 % (37.0-47.0); HEMOGLOBIN 9.9 g/dl (12.0-16.0); LYMPHOCYTES # 0.7 10^3/ul (0.8-2.9); LYMPHOCYTES % 13.8 % (15.0-51.0); MEAN CORPUSCULAR HEMOGLOBIN 30.7 pg (29.0-33.0); MEAN CORPUSCULAR HGB CONC 34.9 g/dl (32.0-37.0); MEAN CORPUSCULAR VOLUME 88.2 fl (82.0-101.0); MEAN PLATELET VOLUME 9.8 fl (7.4-10.4); MONOCYTE # 0.6 10^3/ul (0.3-0.9); NEUTROPHILS % 74.4 % (39.0-77.0); PLATELET COUNT 150 10^3/UL (140-415); RED BLOOD COUNT 3.22 10^6/ul (4.20-5.40); RED CELL DISTRIBUTION WIDTH 13.3 % (11.5-14.5); WHITE BLOOD COUNT 5.4 10^3/ul (4.8-10.8)
[2016-08-22 07:24] VITALS: BP 153/66; RESP 21
[2016-08-22 07:36] LABS: POTASSIUM 3.2 mmol/L (3.5-5.1)
[2016-08-22 07:38] LABS: CREATININE 0.59 mg/dl (0.44-1.00)
[2016-08-22 07:39] LABS: CALCIUM 7.9 mg/dl (8.4-10.2); MAGNESIUM 1.9 mg/dl (1.7-2.5)
[2016-08-22] MEDS: INSULIN GLARGINE [LANtus] 3 ML PEN SC SCH (08:09)
[2016-08-22] MEDS: INSULIN ASPART [NOVOLOG] 3 ML PEN SC SCH ×5 (08:15→23:04)
[2016-08-22] MEDS ORDERED: POTASSIUM CHLORIDE (SR) 20 MEQ TAB PO STA (09:30)
[2016-08-22] MEDS: HYDROCODONE/APAP (5/325) TAB PO PRN ×2 (09:42→17:02)
[2016-08-22] MEDS: DOCUSATE SODIUM 250 MG CAP PO SCH (09:42)
[2016-08-22] MEDS: APIXABAN 5 MG TABLET PO SCH ×2 (09:42→22:31)
[2016-08-22] MEDS: ALPRAZOLAM 0.25 MG TAB PO SCH ×2 (09:42→22:30)
[2016-08-22] MEDS: SALMETEROL/FLUTICASONE 250/50 INHA INH SCH ×2 (09:43→21:00)
[2016-08-22] MEDS: DILTIAZEM 30 MG TAB PO SCH ×3 (09:43→22:31)
--- NOTE | 2016-08-22 10:29 | PN ---
DATE: 08/22/2016 CARDIOLOGY FOLLOWUP SUBJECTIVE: Discussed with the staff. Discussed with the patient's son. According to the son, the patient had "fallen down" last night. According to him, her head was the side of the bed and her leg was down. The patient has been also confused according to him and she has memory of what h appened exactly. She denies any chest pain or pressure to me. Head CT was done last night which sh ows no evidence of acute disease or bleed. Hip x-ray was also done which showed intact left hip francisco s. No evidence of acute hip fracture. The patient still complains of hip pain, but appears to be i mproved from yesterday. MEDICATIONS: Reviewed as per medication reconciliation, personally reviewed. PHYSICAL EXAMINATION: VITAL SIGNS: Temperature 100, heart rate of 100, blood pressure 153/66, respiratory rate of 21, sat urating 95%. HEENT: Normocephalic, atraumatic. Thin female. Pupils are equal. CARDIOVASCULAR: Regular rate and rhythm, systolic murmur, grade I. PULMONARY: With no wheezes heard. GASTROINTESTINAL: Soft, nontender. EXTREMITIES: Status post left hip surgery. NEUROLOGIC: Awake and alert. PSYCHIATRIC: Very anxious repeatedly. DERMATOLOGIC: There has been no active bleeding site. LABORATORY DATA: WBC of 5.4, hemoglobin 9.9, platelet 150. Sodium 132, potassium 3.2, BUN of 61, c reatinine 0.59, glucose of 224. Magnesium is 1.9. ASSESSMENT AND PLAN: 1. Cardiovascular preop evaluation. 2. Hypertension. 3. Chronic obstructive pulmonary disease/reactive airway disease. 4. Diabetes. 5. History of lung carcinoma. 6. Status post hip fracture and now status post fall. 7. Dyslipidemia. RECOMMENDATIONS: Fall precautions were advised and also with the son. DVT prophylaxis as per inter nal medicine and orthopedic recommendations, currently on Eliquis. Diabetic control will be continu ed. I will also add Cardizem to her regimen given her blood pressure and tachycardia. Pain managem ent as per orthopedic recommendation as well. We will replace the electrolytes including the potass ium as well. Dictated By: WILBERTO DARLING/LOBO Conf#: [id number] DID#: [id number] CC: DALIA KAUR MD;*End*
--- NOTE | 2016-08-22 16:14 | PN ---
Date/Time of Note Date/Time of Note DATE: 08/22/16 TIME: 15:59 Assessment/Plan VTE Prophylaxis VTE Prophylaxis Intervention: other (eliquis) Lines/Catheters IV Catheter Type (from Nrs): Saline Lock Urinary Cath still in place: No Assessment/Plan Assessment/Plan IMPRESSION 1. Left hip fracture s/p mechanical fall s/p ORIF 08/20/16 2. HTN : control still suboptimal 3. Diabetes insulin dependent: waning control now that patient is on a diet 4. Stage 4 Lung cancer 5. Severe anxiety d/o 6. Previous Smoker 7. COPD exacerbation 8. Ecoli UTI with mild sepsis (fever, tachy) 9. Hypokalemia PLAN * Start seroquel and uptitrate antihypertensives and hypoglycemics * Commence abx * d/w ortho when we can commence PT * Patient is open to the idea of acute rehab * Continue current mgt and supportive care and pain control. Subjective 24 Hr Interval Summary Free Text/Dictation patient tried to get out of bed yesterday on her own and had a near fall Exam/Review of Systems Vital Signs Vitals Vital Signs Date Time Temp Pulse Resp B/P Pulse Ox O2 Delivery O2 Flow Rate FiO2 08/22/16 15:20 Nasal Cannula 2.0 08/22/16 13:21 105 18 95 21 08/22/16 12:24 98.1 08/22/16 07:24 153/66 Intake and Output 08/21/16 08/21/16 08/22/16 15:00 23:00 07:00 Intake Total 1350 ml 1290 ml Output Total 300 ml Balance 1050 ml 1290 ml Exam Constitutional: alert, frail, anxious +++ Head: atraumatic, normocephalic Eyes: EOMI, PERRL Respiratory: clear to auscultation, normal air movement Cardiovascular: nl pulses, regular rate and rhythm Gastrointestinal: non-tender, soft Musculoskeletal: other (left hip tenderness. Range of motion limited, bandages over surgical scar clean and dry Extremities: normal pulses Results Result Diagram: 08/22/16 0610 08/22/16 0610 Results 24 hrs Laboratory Tests Test 08/21/16 17:31 08/21/16 20:49 08/22/16 06:10 08/22/16 08:02 Bedside Glucose 202 170 220 White Blood Count 5.4 Red Blood Count 3.22 L Hemoglobin 9.9 L Hematocrit 28.4 L Mean Corpuscular Volume 88.2 Mean Corpuscular Hemoglobin 30.7 Mean Corpuscular Hemoglobin Concent 34.9 Red Cell Distribution Width 13.3 Platelet Count 150 Mean Platelet Volume 9.8 Neutrophils % 74.4 Lymphocytes % 13.8 L Monocytes % 11.0 Eosinophils % 0.4 Basophils % 0.0 Nucleated Red Blood Cells % 0.0 Neutrophils # 4.0 Lymphocytes # 0.7 L Monocytes # 0.6 Eosinophils # 0.0 Basophils # 0.0 Nucleated Red Blood Cells # 0.0 Sodium Level 132 L Potassium Level 3.2 L Chloride Level 98 Carbon Dioxide Level 26 Anion Gap 11 Blood Urea Nitrogen 6 L Creatinine 0.59 Glucose Level 224 H Calcium Level 7.9 L Magnesium Level 1.9 Test 08/22/16 12:11 Bedside Glucose 223 H Medications Medications Current Medications Morphine Sulfate (morphine) 4 mg Q4H PRN IV pain Last administered on 08/22/16 12:24; Admin Dose 4 MG; Start 08/20/16 at 05:30 Ondansetron HCl (Zofran Inj) 4 mg Q6H PRN IV NAUSEA AND/OR VOMITING; Start 08/20 at 05:30 Insulin Glargine (Lantus) 10 unit DAILY@08 SC Last administered on 08/22/16 08: 09; Admin Dose 10 UNIT; Start 08/20/16 at 08:00 Diagnostic Test (Pha) 1 ea 1 ea 02 XX ; Start 08/21/16 at 02:00 Dextrose/Sodium Chloride (D5-1/2ns) 1,000 ml @ 50 mls/hr Q20H IV Last administered on 08/21/16 20:00; Admin Dose 50 MLS/HR; Start 08/20/16 at 12:00 Lorazepam (Ativan) 1 mg Q8H PRN IV anxiety Last administered on 08/22/16 13:06 ; Admin Dose 1 MG; Start 08/20/16 at 13:00 Salmeterol Xinafoate/ Fluticasone (Advair 250/50 Diskus) 1 inh BID INH Last administered on 08/22/16 09:43; Admin Dose 1 INH; Start 08/20/16 at 21:00 Acetaminophen/ Hydrocodone Bitart ([place] (5/325)) 1 tab Q6H PRN PO PAIN Last administered on 08/22/16 09:42; Admin Dose 1 TAB; Start 08/20/16 at 17:00 Docusate Sodium 250 mg 250 mg DAILY PO Last administered on 08/22/16 09:42; Admin Dose 250 MG; Start 08/20/16 at 17:00 Cefazolin Sodium (Ancef 1 Gm/50 ml (Pmx)) 50 ml @ 100 mls/hr Q8 IVPB Last administered on 08/22/16 15:46; Admin Dose 100 MLS/HR; Start 08/20/16 at 19:30 Alprazolam (Xanax) 0.25 mg BID PO Last administered on 08/22/16 09:42; Admin Dose 0.25 MG; Start 08/21/16 at 21:00 Apixaban (Eliquis) 2.5 mg BID PO Last administered on 08/22/16 09:42; Admin Dose 2.5 MG; Start 08/22/16 at 09:00 Diltiazem HCl (Cardizem) 30 mg TID PO Last administered on 08/22/16 12:24; Admin Dose 30 MG; Start 08/22/16 at 10:00 Procedures Procedures PROCEDURE: CT Brain without contrast. CLINICAL INDICATION: Fall. Headache. TECHNIQUE: A multiplanar CT of the brain was performed on a CT scanner utilizing axial imaging from the skull base through the vertex without IV contrast. The CTDIvol is 45.01 mGy and the DLP is 720.23 mGycm. One or more of the following dose reduction techniques were utilized: Automated exposure control, adjustment of the mA and/or kV according to patient size, use of iterative reconstruction technique. COMPARISON: None FINDINGS: No evidence of intracranial hemorrhage or abnormal extra-axial fluid collection. Mild periventricular and subcortical white matter low attenuation compatible with sequelae of chronic microvascular ischemic injury. Right caudate nucleus focus of low attenuation which may reflect chronic lacunar infarct. The brain parenchyma is otherwise normal attenuation and morphology with preservation of celis white differentiation. The ventricles and subarachnoid spaces are prominent compatible with age appropriate volume loss. Atherosclerotic calcification of the internal carotid and vertebral arteries. The basal cisterns, posterior fossa contents, brainstem, craniocervical junction , orbits, pituitary axis, paranasal sinuses, mastoid air cells, and calvarium are unremarkable. IMPRESSION: 1. No intracranial hemorrhage or acute intracranial abnormality. 2. Mild chronic microvascular ischemic change. 3. Early ischemic injury may be occult to CT imaging and diffusion weighted MRI may be considered as clinically warranted. RPTAT:AAJJ J Palmer, Physician Date Time Electronically viewed and signed by Sarah Chakraborty, Physician on 08/22/2016 00:12 BRITTANY/ CC: BANDAR KERNS PROCEDURE: Bilateral knee x-ray CLINICAL INDICATION: Fall. Knee pain TECHNIQUE: AP, lateral and oblique views of the bilateral knees were obtained. COMPARISON: None FINDINGS: Right knee: There is normal mineralization. No acute fracture or dislocation is seen. There is no joint effusion. Chondrocalcinosis of the menisci. There are no significant degenerative changes. There is no significant soft tissue swelling. Left knee: There is normal mineralization. Intramedullary francisco in place in the left femur No acute fracture or dislocation is seen. There is no joint effusion. Chondrocalcinosis of the menisci. There are no significant degenerative changes. There is no significant soft tissue swelling. IMPRESSION: 1. No fracture or dislocation of the right knee. Chondrocalcinosis. 2. No fracture or dislocation of the left knee. Chondrocalcinosis. RPTAT:AAJJ J Port, Physician Date Time Electronically viewed and signed by Sarah Chakraborty Physician on 08/22/2016 00:14 BRITTANY/ CC: BANDAR KERNS PROCEDURE: XR Hip. CLINICAL INDICATION: Fall. TECHNIQUE: AP and frog lateral views of the left hip were performed. COMPARISON: None. FINDINGS: Left medullary francisco and the nail in place no new or acute left or right hip fracture degenerative changes of the right hip joint. Findings suggestive of chronic left pelvic fracture deformity. No acute pelvic fracture seen. IMPRESSION: Intact left hip fail intramedullary francisco. No evidence of acute hip or pelvic fracture. RPTAT:AAJJ Sarah Chakraborty Physician Date Time Electronically viewed and signed by Sarah Chakraborty Physician on 08/22/2016 00:15 BRITTANY/ CC: BANDAR KERNS BOLATITO M. August 22, 2016 16:13
[2016-08-22] MEDS ORDERED: GLUCOSE GEL 15 GRAM TUBE PO PRN ×2 (16:30)
[2016-08-22] MEDS ORDERED: GLUCOSE GEL 15 GRAM TUBE BUCCAL PRN (16:30)
[2016-08-22] MEDS ORDERED: GLUCAGON 1 MG INJ IM PRN (16:30)
[2016-08-22] MEDS ORDERED: DEXTROSE 50% 50 ML SYRINGE IV PRN ×2 (16:30)
[2016-08-22] MEDS: CEFTRIAXONE 1 GM/50 ML (PMX) 50 ML IVPB SCH (17:06)
[2016-08-22 20:35] VITALS: BP 137/69; RESP 20
[2016-08-22] MEDS: QUETIAPINE 25 MG TAB PO SCH (22:31)
[2016-08-23] MEDS: ALBUTEROL/IPRATROPIUM (NEB) 3 ML AMP HHN SCH ×6 (00:21→20:06)
[2016-08-23] MEDS: morphine 2 MG INJ IV PRN ×5 (01:50→20:50)
[2016-08-23] MEDS: ACCU-CHEK XX SCH (02:00)
[2016-08-23 05:59] LABS: ADD SCAN DIFF NO
[2016-08-23 06:07] LABS: EOSINOPHILS # 0.1 10^3/ul (0.0-0.5); EOSINOPHILS % 2.1 % (0.0-7.0); HEMATOCRIT 29.3 % (37.0-47.0); HEMOGLOBIN 9.7 g/dl (12.0-16.0); LYMPHOCYTES # 0.6 10^3/ul (0.8-2.9); LYMPHOCYTES % 13.7 % (15.0-51.0); MEAN CORPUSCULAR HEMOGLOBIN 29.8 pg (29.0-33.0); MEAN CORPUSCULAR HGB CONC 33.1 g/dl (32.0-37.0); MEAN CORPUSCULAR VOLUME 89.9 fl (82.0-101.0); MEAN PLATELET VOLUME 9.5 fl (7.4-10.4); MONOCYTE # 0.5 10^3/ul (0.3-0.9); MONOCYTES % 11.6 % (0.0-11.0); NEUTROPHIL # 3.4 10^3/ul (1.6-7.5); NEUTROPHILS % 72.4 % (39.0-77.0); PLATELET COUNT 156 10^3/UL (140-415); RED BLOOD COUNT 3.26 10^6/ul (4.20-5.40); RED CELL DISTRIBUTION WIDTH 13.2 % (11.5-14.5); WHITE BLOOD COUNT 4.7 10^3/ul (4.8-10.8)
[2016-08-23 06:23] LABS: ALBUMIN 2.9 g/dl (3.3-4.9); POTASSIUM 3.4 mmol/L (3.5-5.1)
[2016-08-23 06:25] LABS: CREATININE 0.6 mg/dl (0.44-1.00)
[2016-08-23 06:26] LABS: ALBUMIN/GLOBULIN RATIO 0.93; BILIRUBIN,INDIRECT 0.4 mg/dl (0-1.1); BILIRUBIN,TOTAL 0.4 mg/dl (0.2-1.3); CALCIUM 8.3 mg/dl (8.4-10.2); MAGNESIUM 1.9 mg/dl (1.7-2.5)
[2016-08-23 07:22] VITALS: BP 145/67; RESP 16
[2016-08-23] MEDS: INSULIN GLARGINE [LANtus] 3 ML PEN SC SCH (08:06)
[2016-08-23] MEDS: INSULIN ASPART [NOVOLOG] 3 ML PEN SC SCH ×8 (08:06→20:45)
[2016-08-23] MEDS: HYDROCODONE/APAP (5/325) TAB PO PRN ×2 (08:13→14:28)
[2016-08-23] MEDS: DOCUSATE SODIUM 250 MG CAP PO SCH (08:32)
[2016-08-23] MEDS: ALPRAZOLAM 0.25 MG TAB PO SCH ×2 (08:32→20:38)
[2016-08-23] MEDS: QUETIAPINE 25 MG TAB PO SCH ×2 (08:32→20:38)
[2016-08-23] MEDS: DILTIAZEM 30 MG TAB PO SCH ×3 (08:33→20:41)
[2016-08-23] MEDS: APIXABAN 5 MG TABLET PO SCH ×2 (08:33→20:40)
[2016-08-23] MEDS: SALMETEROL/FLUTICASONE 250/50 INHA INH SCH ×2 (08:33→20:41)
[2016-08-23 08:36] VITALS: BP 159/72; PULSE 104
--- NOTE | 2016-08-23 10:24 | PN ---
DATE: 08/23/2016 CARDIOLOGY FOLLOWUP SUBJECTIVE: Discussed with the staff. Discussed with the patient's son. The patient with no more falls. No chest pain or pressure. Still complains of hip pain but improved. The patient and the s on are upset about multiple nursing issues and have multiple concerns; however, they do not want me to talk to any of the nurses regarding those. MEDICATIONS: Reviewed. PHYSICAL EXAMINATION: VITAL SIGNS: Temperature 98.4, heart rate 104, blood pressure 159/70, respiratory rate of 18. HEENT: Normocephalic, atraumatic. Thin female. Pupils are equal. CARDIOVASCULAR: Regular rate and rhythm, systolic murmur. PULMONARY: With no wheezes now. ABDOMEN: Soft, nontender. EXTREMITIES: Status post hip replacement. NEUROLOGIC: Awake, alert, but anxious. LABORATORY DATA: Sodium 136, potassium 3.4, BUN of 7, creatinine 0.7, glucose 164. Albumin is 2.9. WBC of 4.7, hemoglobin 9.7, platelet 156. ASSESSMENT AND PLAN 1. Hip fracture, status post surgery. 2. Hypertension. 3. Chronic obstructive pulmonary disease. 4. History of lung carcinoma. 5. Diabetes. 6. Dyslipidemia. RECOMMENDATIONS: We will continue with the current cardiac care. Continue with DVT prophylaxis. P ostop care as per orthopedics. Dictated By: WILBERTO DIEGO MD AV/LOBO Conf#: [id number] DID#: [id number] CC: DALIA KAUR MD;*EndCC*
[2016-08-23 13:21] VITALS: BP 107/52; PULSE 89
[2016-08-23] MEDS: CEFTRIAXONE 1 GM/50 ML (PMX) 50 ML IVPB SCH (16:28)
--- NOTE | 2016-08-23 20:33 | PN ---
DATE: 08/23/2016 The patient postoperative day 2, progressing well. The wound is dry, dressing changed. Neurovascul ar status intact. She is starting to move the leg. Slow progress with therapy. She will benefit fro m several weeks in rehab. Spoke with the family at length about surgery again and the postoperative care again and given them my information for the second time. The patient will be following up in t he office in 1 week for followup x-rays and wound check. Dictated By: MIRANDA MONTES/NTS Conf#: [id number] DID#: [id number]
[2016-08-23 20:58] VITALS: BP 151/68; RESP 18
[2016-08-24] MEDS: ALBUTEROL/IPRATROPIUM (NEB) 3 ML AMP HHN SCH ×6 (00:11→20:08)
[2016-08-24] MEDS: HYDROCODONE/APAP (5/325) TAB PO PRN ×3 (00:13→15:27)
[2016-08-24] MEDS: ACCU-CHEK XX SCH (02:00)
[2016-08-24] MEDS: morphine 2 MG INJ IV PRN (05:11)
[2016-08-24 06:23] LABS: ADD SCAN DIFF NO
[2016-08-24 06:31] LABS: BASOPHILS % 0.3 % (0.0-2.0); EOSINOPHILS # 0.3 10^3/ul (0.0-0.5); EOSINOPHILS % 6.3 % (0.0-7.0); HEMATOCRIT 27.9 % (37.0-47.0); HEMOGLOBIN 9.2 g/dl (12.0-16.0); LYMPHOCYTES # 0.7 10^3/ul (0.8-2.9); LYMPHOCYTES % 17.5 % (15.0-51.0); MEAN CORPUSCULAR HEMOGLOBIN 29.8 pg (29.0-33.0); MEAN CORPUSCULAR VOLUME 90.3 fl (82.0-101.0); MEAN PLATELET VOLUME 9.5 fl (7.4-10.4); MONOCYTE # 0.5 10^3/ul (0.3-0.9); MONOCYTES % 12.2 % (0.0-11.0); NEUTROPHIL # 2.5 10^3/ul (1.6-7.5); NEUTROPHILS % 63.7 % (39.0-77.0); PLATELET COUNT 175 10^3/UL (140-415); RED BLOOD COUNT 3.09 10^6/ul (4.20-5.40); RED CELL DISTRIBUTION WIDTH 13.2 % (11.5-14.5)
[2016-08-24 07:31] LABS: CALCIUM 8.5 mg/dl (8.4-10.2); CREATININE 0.6 mg/dl (0.44-1.00); POTASSIUM 4.1 mmol/L (3.5-5.1)
[2016-08-24] MEDS: INSULIN ASPART [NOVOLOG] 3 ML PEN SC SCH ×7 (07:49→20:49)
[2016-08-24] MEDS: INSULIN GLARGINE [LANtus] 3 ML PEN SC SCH (07:50)
[2016-08-24 08:15] VITALS: BP 149/64; RESP 20
[2016-08-24] MEDS: DOCUSATE SODIUM 250 MG CAP PO SCH (08:48)
[2016-08-24] MEDS: QUETIAPINE 25 MG TAB PO SCH ×2 (08:48→21:10)
[2016-08-24] MEDS: DILTIAZEM 30 MG TAB PO SCH ×5 (08:49→21:11)
[2016-08-24] MEDS: ALPRAZOLAM 0.25 MG TAB PO SCH ×2 (08:49→21:10)
[2016-08-24] MEDS: SALMETEROL/FLUTICASONE 250/50 INHA INH SCH ×2 (08:50→21:10)
[2016-08-24] MEDS: APIXABAN 5 MG TABLET PO SCH ×2 (08:50→21:10)
[2016-08-24] MEDS: KETOROLAC 15 MG INJ IV PRN ×2 (09:51→17:32)
[2016-08-24] MEDS ORDERED: KETOROLAC 30 MG INJ IV PRN (10:00)
[2016-08-24] MEDS: LORAZEPAM 2 MG INJ IV PRN ×2 (10:44→18:25)
--- NOTE | 2016-08-24 12:45 | PN ---
Date/Time of Note Date/Time of Note DATE: 08/24/16 TIME: 12:36 Assessment/Plan VTE Prophylaxis VTE Prophylaxis Intervention: other (Eliquis) Lines/Catheters IV Catheter Type (from Nrs): Saline Lock Urinary Cath still in place: No Assessment/Plan Assessment/Plan IMPRESSION 1. Left hip fracture s/p mechanical fall s/p ORIF 08/20/16 2. HTN : control still suboptimal 3. Diabetes insulin dependent: waning control now that patient is on a diet 4. Stage 4 Lung cancer 5. Severe anxiety d/o 6. Previous Smoker 7. COPD exacerbation 8. Ecoli UTI with mild sepsis (fever, tachy): imprroved 9. Hypokalemia PLAN * Increase Cardizem to qID * Change diet to diabetic * Await Acute rehab decision * Continue seroquel * Supportive care * Continue current mgt and supportive care and pain control. Prophylaxis: Eliquis Subjective 24 Hr Interval Summary Free Text/Dictation Patient seen and examined. Less anxious Family concerned that opioids could be worsening anxiety Exam/Review of Systems Vital Signs Vitals Vital Signs Date Time Temp Pulse Resp B/P Pulse Ox O2 Delivery O2 Flow Rate FiO2 08/24/16 10:30 Nasal Cannula 2.0 08/24/16 09:54 90 22 99 21 08/24/16 08:15 98.1 149/64 Intake and Output 08/23/16 08/23/16 08/24/16 15:00 23:00 07:00 Intake Total 830 ml 800 ml Output Total 1000 ml 7 ml Balance -170 ml 793 ml Exam Constitutional: alert, frail, anxious Head: atraumatic, normocephalic Eyes: EOMI, PERRL Respiratory: clear to auscultation, normal air movement Cardiovascular: nl pulses, regular rate and rhythm Gastrointestinal: non-tender, soft Musculoskeletal: other (left hip tenderness. Range of motion limited, bandages over surgical scar clean and dry Extremities: normal pulses Results Result Diagram: 08/24/16 0525 08/24/16 0525 Results 24 hrs Laboratory Tests Test 08/23/16 17:33 08/23/16 20:44 08/24/16 05:25 08/24/16 07:46 Bedside Glucose 351 H 176 249 H White Blood Count 4.0 L Red Blood Count 3.09 L Hemoglobin 9.2 L Hematocrit 27.9 L Mean Corpuscular Volume 90.3 Mean Corpuscular Hemoglobin 29.8 Mean Corpuscular Hemoglobin Concent 33.0 Red Cell Distribution Width 13.2 Platelet Count 175 Mean Platelet Volume 9.5 Neutrophils % 63.7 Lymphocytes % 17.5 Monocytes % 12.2 H Eosinophils % 6.3 Basophils % 0.3 Nucleated Red Blood Cells % 0.0 Neutrophils # 2.5 Lymphocytes # 0.7 L Monocytes # 0.5 Eosinophils # 0.3 Basophils # 0.0 Nucleated Red Blood Cells # 0.0 Sodium Level 134 L Potassium Level 4.1 Chloride Level 103 Carbon Dioxide Level 24 Anion Gap 11 Blood Urea Nitrogen 9 Creatinine 0.60 Glucose Level 203 Calcium Level 8.5 Medications Medications Current Medications Ondansetron HCl (Zofran Inj) 4 mg Q6H PRN IV NAUSEA AND/OR VOMITING; Start 08/20 at 05:30 Diagnostic Test (Pha) (Accu-Chek) 1 ea 02 XX ; Start 08/21/16 at 02:00 Lorazepam (Ativan) 1 mg Q8H PRN IV anxiety Last administered on 08/24/16 10:44 ; Admin Dose 1 MG; Start 08/20/16 at 13:00 Salmeterol Xinafoate/ Fluticasone (Advair 250/50 Diskus) 1 inh BID INH Last administered on 08/24/16 08:50; Admin Dose 1 INH; Start 08/20/16 at 21:00 Acetaminophen/ Hydrocodone Bitart ([place] (5/325)) 1 tab Q6H PRN PO PAIN Last administered on 08/24/16 07:41; Admin Dose 1 TAB; Start 08/20/16 at 17:00 Docusate Sodium (Colace) 250 mg DAILY PO Last administered on 08/24/16 08:48; Admin Dose 250 MG; Start 08/20/16 at 17:00 Alprazolam (Xanax) 0.25 mg BID PO Last administered on 08/24/16 08:49; Admin Dose 0.25 MG; Start 08/21/16 at 21:00 Apixaban (Eliquis) 2.5 mg BID PO Last administered on 08/24/16 08:50; Admin Dose 2.5 MG; Start 08/22/16 at 09:00 Diltiazem HCl (Cardizem) 30 mg TID PO Last administered on 08/24/16 12:07; Admin Dose 30 MG; Start 08/22/16 at 10:00 Quetiapine Fumarate 25 mg 25 mg BID PO Last administered on 08/24/16 08:48; Admin Dose 25 MG; Start 08/22/16 at 21:00 Ceftriaxone Sodium (Rocephin) 50 ml @ 100 mls/hr Q24H IVPB Last administered on 08/23/16 16:28; Admin Dose 100 MLS/HR; Start 08/22/16 at 16:30 Insulin Glargine (Lantus) 15 unit DAILY@08 SC Last administered on 08/24/16 07: 50; Admin Dose 15 UNIT; Start 08/23/16 at 08:00 Miscellaneous Information 1 ea NOTE XX ; Start 08/22/16 at 16:30 Glucose (Glutose) 15 gm Q15M PRN PO DECREASED GLUCOSE; Start 08/22/16 at 16:30 Glucose (Glutose) 22.5 gm Q15M PRN PO DECREASED GLUCOSE; Start 08/22/16 at 16:30 Dextrose (D50w Syringe) 25 ml Q15M PRN IV DECREASED GLUCOSE; Start 08/22/16 at 16:30 Dextrose (D50w Syringe) 50 ml Q15M PRN IV DECREASED GLUCOSE; Start 08/22/16 at 16:30 Glucagon (Glucagen) 1 mg Q15M PRN IM DECREASED GLUCOSE; Start 08/22/16 at 16:30 Glucose (Glutose) 15 gm Q15M PRN BUCCAL DECREASED GLUCOSE; Start 08/22/16 at 16: 30 Ketorolac Tromethamine (Toradol) 15 mg Q6H PRN IV PAIN Last administered on 08/24 09:51; Admin Dose 15 MG; Start 08/24/16 at 10:00; Stop 08/27/16 at 09:59 Bisacodyl (Dulcolax) 10 mg DAILY PRN PO CONSTIPATION; Start 08/24/16 at 11:00 Procedures Procedures PT NOTE S; CLEARED BY NURSING FOR TX, AGREEABLE TO PLAN, PAIN 4/10 L HIP, PREMEDICATED O: PATIENT SEEN SEMI FOWLERS IN BED, THER-EX SUPINE AND SEATED DETAILED ON GRID. REQUIRED MAX ASSIST OF 2 FOR SUPINE TO SIT ON EOB WITH USE OF RAIL. ENRRIQUE SITTING FOR THER-EX AND BALLANCE TRAINING. SIT TO SUPINE IN BED WITH MAX ASSIST OF 2, POSITIONED FOR COMFORT WITH ALL EQUIPMENT IN PLACE, SEE GRID FOR TX DETAILS A; GOOD TOLERANCE TO TX, READY FOR CHAIR TRANSFERS. P; CONT POC DALIA KAUR August 24, 2016 12:45
--- NOTE | 2016-08-24 12:53 | EN ---
Date/Time of Note Date/Time of Note DATE: 08/24/16 TIME: 12:51 Event Note Medicine Medicine Event Note PROGRESS NOTE DATE OF SERVICE: 08/23/16 SUBJECTIVE: Patient was sleeping comfortably, had no new issues OBJECTIVE: VITAL SIGNS: Temperature 98.4, heart rate 104, blood pressure 159/70, respiratory rate of 18. Constitutional: alert, frail, sleeping Head: atraumatic, normocephalic Eyes: EOMI, PERRL Respiratory: clear to auscultation, normal air movement Cardiovascular: nl pulses, regular rate and rhythm Gastrointestinal: non-tender, soft Musculoskeletal: other (left hip tenderness. bandages over surgical scar clean and dry Extremities: normal pulses LABS AND IMAGING: reviewed ASSESSMENT: IMPRESSION 1. Left hip fracture s/p mechanical fall s/p ORIF 08/20/16 2. HTN : control still suboptimal 3. Diabetes insulin dependent: waning control now that patient is on a diet 4. Stage 4 Lung cancer 5. Severe anxiety d/o 6. Previous Smoker 7. COPD exacerbation 8. Ecoli UTI with mild sepsis (fever, tachy) 9. Hypokalemia PLAN * Continue seroquel / uptitrate antihypertensives and hypoglycemics / abx for UTI * d/w ortho when we can commence PT * Patient is open to the idea of acute rehab * Continue current mgt and supportive care and pain control. DALIA KAUR August 24, 2016 12:53
[2016-08-24] MEDS: BISACODYL (EC) 5 MG TAB PO PRN (15:27)
[2016-08-24] MEDS: CEFTRIAXONE 1 GM/50 ML (PMX) 50 ML IVPB SCH (17:28)
[2016-08-24 19:48] VITALS: BP 105/52; RESP 18
--- NOTE | 2016-08-24 20:13 | PN ---
DATE: 08/24/2016 CARDIOLOGY FOLLOWUP SUBJECTIVE: Discussed with the son. According to the son, she is getting excellent service today a nd he is very happy. She is feeling better. Still has hip pain, but is improved with medication. No chest pressure, no shortness of breath, no wheezing. MEDICATIONS: Reviewed. PHYSICAL EXAMINATION: VITAL SIGNS: Heart rate of 84, blood pressure 149/64, respiratory rate of 20. HEENT: Normocephalic, atraumatic. Thin female. Pupils are equal. CARDIOVASCULAR: Regular rate and rhythm, systolic murmur. PULMONARY: With no wheezes or rhonchi. GASTROINTESTINAL: Soft, nontender. EXTREMITIES: Status post surgery. NEUROLOGIC: Awake, responds appropriately. PSYCHIATRIC: Anxious, but pleasant. LABORATORY: WBC of 4, hemoglobin 9.2, platelet 175. Sodium 134, potassium 4.1, BUN of 9, creatinin e 0.6, glucose of 203. ASSESSMENT AND PLAN 1. Hip fracture status post surgery. 2. Hypertension, currently under good control. 3. COPD/lung CA. 4. Diabetes. 5. Dyslipidemia. RECOMMENDATIONS: We will continue with the current cardiac care. Postop care will be continued. D VT prophylaxis will be continued as well. No further cardiac recommendations. Will follow up p.r.n . Dictated By: WILBERTO DIEGO MD AV/LOBO Conf#: [id number] DID#: [id number] CC: DALIA KAUR MD;*EndCC*
[2016-08-25] MEDS: ALBUTEROL/IPRATROPIUM (NEB) 3 ML AMP HHN SCH ×6 (00:15→20:59)
[2016-08-25] MEDS: KETOROLAC 15 MG INJ IV PRN ×3 (01:11→16:50)
[2016-08-25] MEDS: ACCU-CHEK XX SCH (01:14)
[2016-08-25] MEDS: HYDROCODONE/APAP (5/325) TAB PO PRN ×3 (04:29→21:01)
[2016-08-25] MEDS: LORAZEPAM 2 MG INJ IV PRN ×2 (05:22→18:40)
[2016-08-25] MEDS: POLYETHYLENE GLYCOL 17 GM PACKET PO SCH ×3 (05:22→21:13)
[2016-08-25] MEDS: APIXABAN 5 MG TABLET PO SCH ×2 (08:38→21:02)
[2016-08-25] MEDS: ALPRAZOLAM 0.25 MG TAB PO SCH ×2 (08:38→21:02)
[2016-08-25] MEDS: QUETIAPINE 25 MG TAB PO SCH ×2 (08:38→21:01)
[2016-08-25] MEDS: DILTIAZEM 30 MG TAB PO SCH ×4 (08:38→21:03)
[2016-08-25] MEDS: DOCUSATE SODIUM 250 MG CAP PO SCH (08:38)
[2016-08-25] MEDS: SALMETEROL/FLUTICASONE 250/50 INHA INH SCH ×2 (08:38→21:03)
[2016-08-25] MEDS: BISACODYL (EC) 5 MG TAB PO PRN (08:39)
[2016-08-25] MEDS: INSULIN ASPART [NOVOLOG] 3 ML PEN SC SCH ×7 (08:54→21:20)
[2016-08-25] MEDS: INSULIN GLARGINE [LANtus] 3 ML PEN SC SCH (08:55)
--- NOTE | 2016-08-25 09:23 | PN ---
Date/Time of Note Date/Time of Note DATE: 08/25/16 TIME: 09:21 Assessment/Plan VTE Prophylaxis VTE Prophylaxis Intervention: other (eliquis ) Lines/Catheters IV Catheter Type (from Nrs): Saline Lock Urinary Cath still in place: No Assessment/Plan Assessment/Plan IMPRESSION 1. Left hip fracture s/p mechanical fall s/p ORIF 08/20/16 2. HTN : good control 3. Diabetes insulin dependent: waning control now that patient is on a diet 4. Stage 4 Lung cancer 5. Severe anxiety d/o 6. Previous Smoker 7. COPD exacerbation 8. Ecoli UTI with mild sepsis (fever, tachy): imprroved 9. Constipation with hx of hemorrhoidectomy about 5 months ago PLAN * treat constipation more aggressively * Continue in-house PT, ARU review again on saturday, if no improvement, then SNF * Continue seroquel * Supportive care * Continue current mgt and supportive care and pain control. Prophylaxis: Eliquis for dvt prophylaxis only Subjective 24 Hr Interval Summary Gastrointestinal: constipation Exam/Review of Systems Vital Signs Vitals Vital Signs Date Time Temp Pulse Resp B/P Pulse Ox O2 Delivery O2 Flow Rate FiO2 08/25/16 00:24 91 20 95 21 08/24/16 20:00 Nasal Cannula 2.0 08/24/16 19:48 98.5 105/52 Intake and Output 08/24/16 08/24/16 08/25/16 15:00 23:00 07:00 Intake Total 1130 ml 800 ml Balance 1130 ml 800 ml Exam Constitutional: alert, frail, anxious Head: atraumatic, normocephalic Eyes: EOMI, PERRL Respiratory: clear to auscultation, normal air movement Cardiovascular: nl pulses, regular rate and rhythm Gastrointestinal: non-tender, soft Musculoskeletal: other (left hip tenderness. Range of motion limited, bandages over surgical site clean and dry Extremities: normal pulses Results Result Diagram: 08/24/16 0525 08/24/16 0525 Results 24 hrs Laboratory Tests Test 08/24/16 12:00 08/24/16 12:02 08/24/16 17:25 08/24/16 20:44 Bedside Glucose 363 H 229 H 183 195 Test 08/25/16 01:14 08/25/16 08:15 Bedside Glucose 201 181 Medications Medications Current Medications Ondansetron HCl (Zofran Inj) 4 mg Q6H PRN IV NAUSEA AND/OR VOMITING Last administered on 08/24/16 19:01; Admin Dose 4 MG; Start 08/20/16 at 05:30 Diagnostic Test (Pha) (Accu-Chek) 1 ea 02 XX Last administered on 08/25/16 01: 14; Admin Dose 1 EA; Start 08/21/16 at 02:00 Lorazepam (Ativan) 1 mg Q8H PRN IV anxiety Last administered on 08/25/16 05:22 ; Admin Dose 1 MG; Start 08/20/16 at 13:00 Salmeterol Xinafoate/ Fluticasone (Advair 250/50 Diskus) 1 inh BID INH Last administered on 08/25/16 08:38; Admin Dose 1 INH; Start 08/20/16 at 21:00 Acetaminophen/ Hydrocodone Bitart ([place] (5/325)) 1 tab Q6H PRN PO PAIN Last administered on 08/25/16 04:29; Admin Dose 1 TAB; Start 08/20/16 at 17:00 Docusate Sodium (Colace) 250 mg DAILY PO Last administered on 08/25/16 08:38; Admin Dose 250 MG; Start 08/20/16 at 17:00 Alprazolam (Xanax) 0.25 mg BID PO Last administered on 08/25/16 08:38; Admin Dose 0.25 MG; Start 08/21/16 at 21:00 Apixaban (Eliquis) 2.5 mg BID PO Last administered on 08/25/16 08:38; Admin Dose 2.5 MG; Start 08/22/16 at 09:00 Quetiapine Fumarate 25 mg 25 mg BID PO Last administered on 08/25/16 08:38; Admin Dose 25 MG; Start 08/22/16 at 21:00 Ceftriaxone Sodium (Rocephin) 50 ml @ 100 mls/hr Q24H IVPB Last administered on 08/24/16 17:28; Admin Dose 100 MLS/HR; Start 08/22/16 at 16:30 Insulin Glargine (Lantus) 15 unit DAILY@08 SC Last administered on 08/25/16 08: 55; Admin Dose 15 UNIT; Start 08/23/16 at 08:00 Miscellaneous Information 1 ea NOTE XX ; Start 08/22/16 at 16:30 Glucose (Glutose) 15 gm Q15M PRN PO DECREASED GLUCOSE; Start 08/22/16 at 16:30 Glucose (Glutose) 22.5 gm Q15M PRN PO DECREASED GLUCOSE; Start 08/22/16 at 16:30 Dextrose (D50w Syringe) 25 ml Q15M PRN IV DECREASED GLUCOSE; Start 08/22/16 at 16:30 Dextrose (D50w Syringe) 50 ml Q15M PRN IV DECREASED GLUCOSE; Start 08/22/16 at 16:30 Glucagon (Glucagen) 1 mg Q15M PRN IM DECREASED GLUCOSE; Start 08/22/16 at 16:30 Glucose (Glutose) 15 gm Q15M PRN BUCCAL DECREASED GLUCOSE; Start 08/22/16 at 16: 30 Ketorolac Tromethamine (Toradol) 15 mg Q6H PRN IV PAIN Last administered on 08/25 08:39; Admin Dose 15 MG; Start 08/24/16 at 10:00; Stop 08/27/16 at 09:59 Bisacodyl (Dulcolax) 10 mg DAILY PRN PO CONSTIPATION Last administered on 08:39; Admin Dose 10 MG; Start 08/24/16 at 11:00 Diltiazem HCl (Cardizem) 30 mg QID PO Last administered on 08/25/16 08:38; Admin Dose 30 MG; Start 08/24/16 at 13:00 Polyethylene Glycol (Miralax) 17 gm BID PO Last administered on 08/25/16 08:37 ; Admin Dose 17 GM; Start 08/25/16 at 04:30 DALIA KAUR August 25, 2016 09:23
[2016-08-25] MEDS ORDERED: MAGNESIUM CITRATE 300 ML BTL PO ONE (10:30)
[2016-08-25 13:11] VITALS: BP 145/70; PULSE 107
[2016-08-25] MEDS ORDERED: MINERAL OIL 133 ML ENEMA PR ONE (14:30)
[2016-08-25] MEDS: CEFTRIAXONE 1 GM/50 ML (PMX) 50 ML IVPB SCH (16:50)
[2016-08-25 16:56] VITALS: BP 146/63; PULSE 92
[2016-08-25 18:24] VITALS: BP 140/65; PULSE 106
[2016-08-25 19:39] VITALS: BP 122/57; RESP 18
--- NOTE | 2016-08-25 23:33 | RADRPT ---
PROCEDURE: XR Chest. CLINICAL INDICATION: Chest pain. TECHNIQUE: Single frontal view. COMPARISON: 08/21/2016. FINDINGS: There is mild interstitial disease at the lung bases. Mild nodular densities are present bilaterall y. The lungs are otherwise clear. The heart size is normal. There is calcification in the aorta consistent with atherosclerosis. There is no pleural effusion. There is no pneumothorax. IMPRESSION: 1. No significant change from 08/21/2016. RPTAT: QQ .Derrick Barajas MD, Date Time Electronically viewed and signed by .Derrick Barajas MD, MD on 08/25/2016 23:33 .R/
[2016-08-26] MEDS: ALBUTEROL/IPRATROPIUM (NEB) 3 ML AMP HHN SCH ×6 (00:19→20:52)
[2016-08-26] MEDS: LORAZEPAM 2 MG INJ IV PRN ×2 (01:37→12:07)
[2016-08-26] MEDS: KETOROLAC 15 MG INJ IV PRN ×3 (01:37→23:54)
[2016-08-26] MEDS: ACCU-CHEK XX SCH (02:00)
[2016-08-26] MEDS: INSULIN GLARGINE [LANtus] 3 ML PEN SC SCH (08:17)
[2016-08-26] MEDS: INSULIN ASPART [NOVOLOG] 3 ML PEN SC SCH ×7 (08:18→21:00)
[2016-08-26] MEDS: QUETIAPINE 25 MG TAB PO SCH ×2 (08:19→21:04)
[2016-08-26] MEDS: APIXABAN 5 MG TABLET PO SCH ×2 (08:20→21:03)
[2016-08-26] MEDS: DILTIAZEM 30 MG TAB PO SCH ×4 (08:20→21:05)
[2016-08-26] MEDS: ALPRAZOLAM 0.25 MG TAB PO SCH ×3 (08:20→21:04)
[2016-08-26] MEDS: DOCUSATE SODIUM 250 MG CAP PO SCH (08:21)
[2016-08-26] MEDS: POLYETHYLENE GLYCOL 17 GM PACKET PO SCH ×2 (08:22→21:00)
[2016-08-26] MEDS: SALMETEROL/FLUTICASONE 250/50 INHA INH SCH ×2 (08:22→21:04)
[2016-08-26] MEDS: HYDROCODONE/APAP (5/325) TAB PO PRN ×3 (08:47→20:20)
--- NOTE | 2016-08-26 15:32 | PN ---
Date/Time of Note Date/Time of Note DATE: 08/26/16 TIME: 15:29 Assessment/Plan VTE Prophylaxis VTE Prophylaxis Intervention: other (eliquis) Lines/Catheters IV Catheter Type (from Nrs): Saline Lock Urinary Cath still in place: No Assessment/Plan Assessment/Plan IMPRESSION 1. Left hip fracture s/p mechanical fall s/p ORIF 08/20/16 2. HTN : good control 3. Diabetes insulin dependent: waning control now that patient is on a diet 4. Stage 4 Lung cancer 5. Severe anxiety d/o 6. Previous Smoker 7. COPD exacerbation 8. Ecoli UTI with mild sepsis (fever, tachy): improved 9. Constipation with hx of hemorrhoidectomy about 5 months ago PLAN * treat constipation more aggressively * Continue in-house PT, ARU review again on saturday, if no improvement, then SNF * Continue seroquel * Supportive care * Continue current mgt and supportive care and pain control. Prophylaxis: Eliquis for dvt prophylaxis only (No Afib) Subjective 24 Hr Interval Summary Free Text/Dictation patient had some CP last night, workup was negative. Still anxious about multiple issues, no chest pain today Had very small BM yesterday after mineral oil enema Exam/Review of Systems Vital Signs Vitals Vital Signs Date Time Temp Pulse Resp B/P Pulse Ox O2 Delivery O2 Flow Rate FiO2 08/26/16 13:33 93 20 94 21 08/25/16 19:39 99.1 122/57 08/24/16 20:00 Nasal Cannula 2.0 Intake and Output 08/25/16 08/25/16 08/26/16 14:59 22:59 06:59 Intake Total 510 ml 200 ml Balance 510 ml 200 ml Exam Constitutional: alert, frail, anxious Head: atraumatic, normocephalic Eyes: EOMI, PERRL Respiratory: clear to auscultation, normal air movement Cardiovascular: nl pulses, regular rate and rhythm Gastrointestinal: non-tender, soft Musculoskeletal: other (left hip tenderness. bandages over surgical site clean and dry Extremities: normal pulses Results Result Diagram: 08/24/16 0525 08/24/16 0525 Results 24 hrs Laboratory Tests Test 08/25/16 17:24 08/25/16 21:08 08/25/16 22:20 08/26/16 07:00 Bedside Glucose 178 251 H Troponin I < 0.012 < 0.012 Test 08/26/16 08:16 08/26/16 12:06 Bedside Glucose 177 178 Medications Medications Current Medications Ondansetron HCl (Zofran Inj) 4 mg Q6H PRN IV NAUSEA AND/OR VOMITING Last administered on 08/24/16 19:01; Admin Dose 4 MG; Start 08/20/16 at 05:30 Diagnostic Test (Pha) (Accu-Chek) 1 ea 02 XX Last administered on 08/25/16 01: 14; Admin Dose 1 EA; Start 08/21/16 at 02:00 Lorazepam (Ativan) 1 mg Q8H PRN IV anxiety Last administered on 08/26/16 12:07 ; Admin Dose 1 MG; Start 08/20/16 at 13:00 Salmeterol Xinafoate/ Fluticasone (Advair 250/50 Diskus) 1 inh BID INH Last administered on 08/26/16 08:22; Admin Dose 1 INH; Start 08/20/16 at 21:00 Acetaminophen/ Hydrocodone Bitart ([place] (5/325)) 1 tab Q6H PRN PO PAIN Last administered on 08/26/16 15:10; Admin Dose 1 TAB; Start 08/20/16 at 17:00 Docusate Sodium (Colace) 250 mg DAILY PO Last administered on 08/26/16 08:21; Admin Dose 250 MG; Start 08/20/16 at 17:00 Alprazolam (Xanax) 0.25 mg BID PO Last administered on 08/26/16 08:20; Admin Dose 0.25 MG; Start 08/21/16 at 21:00 Apixaban 2.5 mg 2.5 mg BID PO Last administered on 08/26/16 08:20; Admin Dose 2.5 MG; Start 08/22/16 at 09:00 Ceftriaxone Sodium (Rocephin) 50 ml @ 100 mls/hr Q24H IVPB Last administered on 08/25/16 16:50; Admin Dose 100 MLS/HR; Start 08/22/16 at 16:30 Insulin Glargine (Lantus) 15 unit DAILY@08 SC Last administered on 08/26/16 08: 17; Admin Dose 15 UNIT; Start 08/23/16 at 08:00 Miscellaneous Information 1 ea NOTE XX ; Start 08/22/16 at 16:30 Glucose (Glutose) 15 gm Q15M PRN PO DECREASED GLUCOSE; Start 08/22/16 at 16:30 Glucose (Glutose) 22.5 gm Q15M PRN PO DECREASED GLUCOSE; Start 08/22/16 at 16:30 Dextrose (D50w Syringe) 25 ml Q15M PRN IV DECREASED GLUCOSE; Start 08/22/16 at 16:30 Dextrose (D50w Syringe) 50 ml Q15M PRN IV DECREASED GLUCOSE; Start 08/22/16 at 16:30 Glucagon (Glucagen) 1 mg Q15M PRN IM DECREASED GLUCOSE; Start 08/22/16 at 16:30 Glucose (Glutose) 15 gm Q15M PRN BUCCAL DECREASED GLUCOSE; Start 08/22/16 at 16: 30 Ketorolac Tromethamine (Toradol) 15 mg Q6H PRN IV PAIN Last administered on 08/26 01:37; Admin Dose 15 MG; Start 08/24/16 at 10:00; Stop 08/27/16 at 09:59 Bisacodyl (Dulcolax) 10 mg DAILY PRN PO CONSTIPATION Last administered on 08:39; Admin Dose 10 MG; Start 08/24/16 at 11:00 Diltiazem HCl (Cardizem) 30 mg QID PO Last administered on 08/26/16 12:07; Admin Dose 30 MG; Start 08/24/16 at 13:00 Polyethylene Glycol (Miralax) 17 gm BID PO Last administered on 08/26/16 08:22 ; Admin Dose 17 GM; Start 08/25/16 at 04:30 Quetiapine Fumarate (Seroquel) 50 mg BID PO Last administered on 08/26/16 08:19 ; Admin Dose 50 MG; Start 08/25/16 at 21:00 DALIA KAUR August 26, 2016 15:31
[2016-08-26] MEDS: CEFTRIAXONE 1 GM/50 ML (PMX) 50 ML IVPB SCH (17:30)
[2016-08-26 20:29] VITALS: BP 126/58; RESP 16
[2016-08-27] MEDS: ALBUTEROL/IPRATROPIUM (NEB) 3 ML AMP HHN SCH ×6 (00:27→20:10)
[2016-08-27] MEDS: ACCU-CHEK XX SCH (02:00)
[2016-08-27] MEDS: HYDROCODONE/APAP (5/325) TAB PO PRN ×2 (02:08→08:17)
[2016-08-27 02:33] VITALS: PULSE 87
[2016-08-27] MEDS: LORAZEPAM 2 MG INJ IV PRN ×3 (02:55→18:38)
[2016-08-27] MEDS: KETOROLAC 15 MG INJ IV PRN (05:34)
[2016-08-27 07:38] VITALS: BP 144/63; RESP 20
[2016-08-27] MEDS: QUETIAPINE 25 MG TAB PO SCH ×2 (08:29→21:46)
[2016-08-27] MEDS: ALPRAZOLAM 0.25 MG TAB PO SCH ×2 (08:29→21:45)
[2016-08-27] MEDS: DILTIAZEM 30 MG TAB PO SCH ×4 (08:30→21:46)
[2016-08-27] MEDS: POLYETHYLENE GLYCOL 17 GM PACKET PO SCH ×2 (08:30→21:46)
[2016-08-27] MEDS: DOCUSATE SODIUM 250 MG CAP PO SCH (08:30)
[2016-08-27] MEDS: APIXABAN 5 MG TABLET PO SCH ×2 (08:31→21:46)
[2016-08-27] MEDS: SALMETEROL/FLUTICASONE 250/50 INHA INH SCH ×2 (08:34→21:47)
[2016-08-27] MEDS: INSULIN ASPART [NOVOLOG] 3 ML PEN SC SCH ×7 (08:36→21:00)
[2016-08-27] MEDS: INSULIN GLARGINE [LANtus] 3 ML PEN SC SCH (08:36)
--- NOTE | 2016-08-27 14:20 | PN ---
Date/Time of Note Date/Time of Note DATE: 08/27/16 TIME: 14:11 Assessment/Plan VTE Prophylaxis VTE Prophylaxis Intervention: other Lines/Catheters [facility] Saline Lock Urinary Cath still in place: No Assessment/Plan Chief Complaint/Hosp Course Assessment/Plan IMPRESSION 1. Left hip fracture s/p mechanical fall s/p ORIF 08/20/16 2. HTN : good control 3. Diabetes insulin dependent: waning control now that patient is on a diet 4. Stage 4 Lung cancer 5. Severe anxiety d/o 6. Previous Smoker 7. COPD exacerbation 8. Ecoli UTI with mild sepsis (fever, tachy): improved 9. Constipation with hx of hemorrhoidectomy about 5 months ago PLAN * treat constipation more aggressively * Continue in-house PT, ARU review again on saturday, if no improvement, then SNF * Continue seroquel * Supportive care * Continue current mgt and supportive care and pain control. Prophylaxis: Eliquis for dvt prophylaxis only (No Afib) Plan to discharge to retirement facility versus acute rehab tomorrow Problems: Subjective 24 Hr Interval Summary Free Text/Dictation Patient continues to complain of having left hip pain No nausea vomiting diarrhea Minimal p.o. intake Exam/Review of Systems Vital Signs Vitals Vital Signs Date Time Temp Pulse Resp B/P Pulse Ox O2 Delivery O2 Flow Rate FiO2 08/27/16 07:49 72 18 95 21 08/27/16 07:38 97.9 144/63 08/27/16 02:33 Room Air 08/24/16 20:00 2.0 Intake and Output 08/26/16 08/26/16 08/27/16 15:00 23:00 07:00 Intake Total 890 ml 600 ml Balance 890 ml 600 ml Exam General: The patient is well-developed, in moderate distress secondary to left hip pain. HEENT: Atraumatic, normocephalic. The pupils are equal and round . Neck: Supple with full range of motion. Chest: Normal expansion of the thorax during inspiration Lungs: Clear to auscultation bilaterally Heart: Normal S1-S2, Regular rhythm and rate. Abdomen: Soft , nontender, nondistended , bowel sounds are present. Extremities: Left hip bruises at the surgical site with no evidence of bleeding or hematoma, no edema no cyanosis Neurologic: Normal mental status,The patient is awake, alert and oriented . Results Result Diagram: 08/24/1625 08/24/16 0525 Results 24 hrs Laboratory Tests Test 08/26/16 17:21 08/26/16 21:01 08/27/16 08:33 08/27/16 12:06 Bedside Glucose 205 119 159 197 Medications Medications Current Medications Ondansetron HCl (Zofran Inj) 4 mg Q6H PRN IV NAUSEA AND/OR VOMITING Last administered on 08/24/16 19:01; Admin Dose 4 MG; Start 08/20/16 at 05:30 Diagnostic Test (Pha) (Accu-Chek) 1 ea 02 XX Last administered on 08/25/16 01: 14; Admin Dose 1 EA; Start 08/21/16 at 02:00 Lorazepam (Ativan) 1 mg Q8H PRN IV anxiety Last administered on 08/27/16 11:17 ; Admin Dose 1 MG; Start 08/20/16 at 13:00 Salmeterol Xinafoate/ Fluticasone (Advair 250/50 Diskus) 1 inh BID INH Last administered on 08/27/16 08:34; Admin Dose 1 INH; Start 08/20/16 at 21:00 Acetaminophen/ Hydrocodone Bitart ([place] (5/325)) 1 tab Q6H PRN PO PAIN Last administered on 08/27/16 08:17; Admin Dose 1 TAB; Start 08/20/16 at 17:00 Docusate Sodium (Colace) 250 mg DAILY PO Last administered on 08/26/16 08:21; Admin Dose 250 MG; Start 08/20/16 at 17:00 Alprazolam (Xanax) 0.25 mg BID PO Last administered on 08/27/16 08:29; Admin Dose 0.25 MG; Start 08/21/16 at 21:00 Apixaban 2.5 mg 2.5 mg BID PO Last administered on 08/27/16 08:31; Admin Dose 2.5 MG; Start 08/22/16 at 09:00 Ceftriaxone Sodium (Rocephin) 50 ml @ 100 mls/hr Q24H IVPB Last administered on 08/26/16 17:30; Admin Dose 100 MLS/HR; Start 08/22/16 at 16:30 Insulin Glargine (Lantus) 15 unit DAILY@08 SC Last administered on 08/27/16 08: 36; Admin Dose 15 UNIT; Start 08/23/16 at 08:00 Miscellaneous Information 1 ea NOTE XX ; Start 08/22/16 at 16:30 Glucose (Glutose) 15 gm Q15M PRN PO DECREASED GLUCOSE; Start 08/22/16 at 16:30 Glucose (Glutose) 22.5 gm Q15M PRN PO DECREASED GLUCOSE; Start 08/22/16 at 16:30 Dextrose (D50w Syringe) 25 ml Q15M PRN IV DECREASED GLUCOSE; Start 08/22/16 at 16:30 Dextrose (D50w Syringe) 50 ml Q15M PRN IV DECREASED GLUCOSE; Start 08/22/16 at 16:30 Glucagon (Glucagen) 1 mg Q15M PRN IM DECREASED GLUCOSE; Start 08/22/16 at 16:30 Glucose (Glutose) 15 gm Q15M PRN BUCCAL DECREASED GLUCOSE; Start 08/22/16 at 16: 30 Bisacodyl (Dulcolax) 10 mg DAILY PRN PO CONSTIPATION Last administered on 08:39; Admin Dose 10 MG; Start 08/24/16 at 11:00 Diltiazem HCl (Cardizem) 30 mg QID PO Last administered on 08/27/16 12:08; Admin Dose 30 MG; Start 08/24/16 at 13:00 Polyethylene Glycol (Miralax) 17 gm BID PO Last administered on 08/26/16 08:22 ; Admin Dose 17 GM; Start 08/25/16 at 04:30 Quetiapine Fumarate (Seroquel) 50 mg BID PO Last administered on 08/27/16 08:29 ; Admin Dose 50 MG; Start 08/25/16 at 21:00 CATALINA RODRIGUEZ MD August 27, 2016 14:20
[2016-08-27] MEDS ORDERED: morphine 2 MG INJ IV PRN (14:30)
[2016-08-27] MEDS: OXYCODONE/ACETAMINOPHEN (5/325) TAB PO PRN ×2 (15:19→19:02)
[2016-08-27] MEDS: CEFTRIAXONE 1 GM/50 ML (PMX) 50 ML IVPB SCH (16:39)
[2016-08-27] MEDS: morphine 2 MG INJ IV PRN (16:39)
--- NOTE | 2016-08-27 21:41 | PN ---
DATE: 08/27/2016 CARDIOLOGY FOLLOWUP SUBJECTIVE: Discussed with the staff. Discussed with the patient's . No chest pain or pres sure. Has some cough, but improving. Still complains of hip pain. MEDICATIONS: Reviewed. PHYSICAL EXAMINATION: VITAL SIGNS: Temperature 97.9, heart rate of 77, blood pressure 144/63, respiration rate of 20, sat urating 96%. HEENT: Normocephalic, atraumatic. Thin female. Pupils are equal. CARDIOVASCULAR: Regular rate and rhythm. PULMONARY: With no wheezes. GASTROINTESTINAL: Soft, nontender. EXTREMITIES: ____. NEUROLOGIC: Awake and alert and oriented. PSYCHIATRIC: Anxious, but otherwise pleasant. LABORATORY: Glucose 197. ASSESSMENT AND PLAN: 1. Hip fracture status post surgery. 2. Hypertension, under good control. 3. Diabetes, under control now. 4. History of lung carcinoma. 5. Anxiety. 6. Chronic obstructive pulmonary disease and bronchitis. 7. Urinary tract infection. RECOMMENDATIONS: We will continue with the current cardiac care. Awaiting evaluation for rehabilit ation. Antibiotic as per internal medicine. DVT prophylaxis will be continued. Postop care and pa in management as per ortho recommendation. DVT prophylaxis as per internal medicine. Dictated By: WILBERTO DIEGO MD AV/LOBO Conf#: [id number] DID#: [id number] CC: LAUREN CONDE MD; CATALINA RODRIGUEZ MD;*[facility]*
[2016-08-28] MEDS: ALBUTEROL/IPRATROPIUM (NEB) 3 ML AMP HHN SCH ×6 (00:52→20:28)
[2016-08-28] MEDS: ACCU-CHEK XX SCH (01:33)
[2016-08-28] MEDS: morphine 2 MG INJ IV PRN ×2 (01:53→19:47)
[2016-08-28 02:21] VITALS: RESP 18
[2016-08-28] MEDS: LORAZEPAM 2 MG INJ IV PRN ×3 (03:16→22:21)
[2016-08-28] MEDS: OXYCODONE/ACETAMINOPHEN (5/325) TAB PO PRN ×5 (04:29→21:14)
[2016-08-28 07:52] VITALS: BP 137/65; RESP 20
[2016-08-28] MEDS ORDERED: INSULIN GLARGINE [LANtus] 3 ML PEN SC SCH (08:00)
[2016-08-28] MEDS: INSULIN ASPART [NOVOLOG] 3 ML PEN SC SCH ×7 (08:15→21:01)
[2016-08-28] MEDS: QUETIAPINE 25 MG TAB PO SCH ×2 (08:22→20:38)
[2016-08-28] MEDS: POLYETHYLENE GLYCOL 17 GM PACKET PO SCH ×2 (08:22→20:38)
[2016-08-28] MEDS: APIXABAN 5 MG TABLET PO SCH ×2 (08:22→20:38)
[2016-08-28] MEDS: DOCUSATE SODIUM 250 MG CAP PO SCH (08:23)
[2016-08-28] MEDS: ALPRAZOLAM 0.25 MG TAB PO SCH ×2 (08:23→20:38)
[2016-08-28] MEDS: SALMETEROL/FLUTICASONE 250/50 INHA INH SCH ×2 (08:24→20:38)
[2016-08-28] MEDS: DILTIAZEM 30 MG TAB PO SCH ×4 (08:24→20:37)
[2016-08-28 10:03] LABS: ADD SCAN DIFF NO
[2016-08-28 10:09] LABS: BASOPHILS % 0.2 % (0.0-2.0); EOSINOPHILS # 0.3 10^3/ul (0.0-0.5); EOSINOPHILS % 5.1 % (0.0-7.0); HEMATOCRIT 28.5 % (37.0-47.0); HEMOGLOBIN 8.9 g/dl (12.0-16.0); LYMPHOCYTES # 0.6 10^3/ul (0.8-2.9); LYMPHOCYTES % 11.6 % (15.0-51.0); MEAN CORPUSCULAR HEMOGLOBIN 28.9 pg (29.0-33.0); MEAN CORPUSCULAR HGB CONC 31.2 g/dl (32.0-37.0); MEAN CORPUSCULAR VOLUME 92.5 fl (82.0-101.0); MEAN PLATELET VOLUME 9.1 fl (7.4-10.4); MONOCYTE # 0.7 10^3/ul (0.3-0.9); MONOCYTES % 13.3 % (0.0-11.0); NEUTROPHIL # 3.8 10^3/ul (1.6-7.5); NEUTROPHILS % 69.1 % (39.0-77.0); PLATELET COUNT 395 10^3/UL (140-415); RED BLOOD COUNT 3.08 10^6/ul (4.20-5.40); RED CELL DISTRIBUTION WIDTH 13.8 % (11.5-14.5); WHITE BLOOD COUNT 5.5 10^3/ul (4.8-10.8)
[2016-08-28 10:42] LABS: CALCIUM 8.7 mg/dl (8.4-10.2); CREATININE 0.67 mg/dl (0.44-1.00); MAGNESIUM 1.9 mg/dl (1.7-2.5); POTASSIUM 4.2 mmol/L (3.5-5.1)
--- NOTE | 2016-08-28 13:20 | PN ---
DATE: 08/28/2016 CARDIOLOGY FOLLOWUP SUBJECTIVE: Discussed with the staff. Rhythm strip was reviewed. Discussed with the staff, kesha sed with the patient's . The patient has a depressed mood today. Denies any chest pain to piper e. Has some cough. She still has hip pain which improved with pain medication. MEDICATIONS: Reviewed. PHYSICAL EXAMINATION: VITAL SIGNS: Temperature 98.4, heart rate of 83, blood pressure of 137/65, respiratory rate of 20, saturating 96%. HEENT: Normocephalic, atraumatic. Thin female. Pupils are equal. GENERAL: Appears to be anxious, otherwise no acute distress. CARDIOVASCULAR: Regular rate and rhythm. No murmur appreciated. PULMONARY: Mild rhonchi with no wheezes. GASTROINTESTINAL: Soft, nontender. EXTREMITIES: With trivial lower extremity edema. NEUROLOGIC: Awake and alert. PSYCHIATRIC: Anxious. LABORATORY: WBC of 5.5, hemoglobin 8.9, platelets of 395. Sodium 130, potassium 4.2, BUN of 16, cr eatinine 0.67, glucose 245. ASSESSMENT AND PLAN: 1. Hip fracture status post surgery now. 2. Hypertension, under good control. 3. Diabetes, managed by internal medicine. 4. History of stage IV lung cancer. 5. Chronic obstructive pulmonary disease. 6. Asthma. 7. Anxiety and depression. 8. Escherichia coli urinary tract infection, ____ antibiotics. RECOMMENDATIONS: We will continue with the current cardiac care. Postop care to be continued and m anaged as per internal medicine. Awaiting discharge planning, possibly to rehabilitation. Dictated By: WILBERTO DARLING/LOBO Conf#: [id number] DID#: [id number]
--- NOTE | 2016-08-28 14:20 | PDOCDIS ---
Discharge Instructions CONDITION Patient Condition: Fair HOME CARE INSTRUCTIONS: Special Diet: carb controlled diet ACTIVITY: Activity Restrictions: Special Exercises FOLLOW UP/APPOINTMENTS Appointments Follow up with Orthopedic surgery in 1-2 weeks Follow up with PCP as out-pt CATALINA RODRIGUEZ MD August 28, 2016 14:20
[2016-08-28] MEDS ORDERED: DILT30TA30 PO (14:26)
[2016-08-28] MEDS ORDERED: QUET25TA33 PO (14:26)
[2016-08-28] MEDS ORDERED: BISA5TAB6 PO (14:26)
[2016-08-28] MEDS ORDERED: ADV25050 INH (14:26)
[2016-08-28] MEDS ORDERED: APIX5TAB PO (14:26)
[2016-08-28] MEDS ORDERED: POLY17PO6 PO (14:26)
[2016-08-28] MEDS ORDERED: LANT3I SC (14:26)
[2016-08-28] MEDS ORDERED: Oxycodone/Acetamin (5/325) PO (14:26)
[2016-08-28] MEDS ORDERED: DOCU250C58 PO (14:26)
[2016-08-28] MEDS ORDERED: NOVO3I SC (14:26)
[2016-08-28] MEDS ORDERED: ALPR0.254 PO (14:26)
--- NOTE | 2016-08-28 16:08 | DS ---
DATE OF ADMISSION: 08/20/2016 DATE OF DISCHARGE: 08/28/2016 CONSULTANTS: 1. Social service. 2. talent acquisition operations manager. 3. Dr. Scotty Justice. 4. Dr. Everardo Camarillo. 5. Dr. Kayleigh Dodson. PROCEDURES: Status post ORIF on 08/20/2016. DIAGNOSES 1. Left hip fracture status post mechanical fall, status post open reduction internal fixation. 2. Hypertension. 3. Diabetes mellitus. 4. History of stage IV lung cancer. 5. History of anxiety. 6. Previous smoker. 7. Chronic obstructive pulmonary disease. 8. Escherichia coli. 9. Constipation. 10. History of hemorrhoidectomy. MEDICATIONS: 1. DuoNeb. 2. Xanax. 3. Eliquis. 4. Dulcolax. 5. Cardizem. 6. Colace. 7. NovoLog. 8. Lantus. 9. Percocet. 10. Zofran. 11. MiraLax. 12. Seroquel. 13. Advair. 14. Keflex. 15. Robitussin-AC. ALLERGIES: NO KNOWN DRUG ALLERGIES. HOSPITAL COURSE: This is an 81-year-old female with past medical history of hypertension, diabetes mellitus, lung cancer, depression, anxiety, nicotine dependency in remission, who presented to [facility] emergency room after having a mechanical fall on her left side at home. She was walk ing and tripped and fell landing to her left side, experiencing excruciating pain. There was no los s of consciousness, no head trauma. She was brought in with EMS to [facility] ER. X-ray o f the hip was obtained which showed intertrochanteric left femur fracture with approximately 90 degr ees varus deformity. Orthopedic surgeon and cardiology were consulted. A 2D echocardiogram was obt ained which demonstrated normal left ventricle systolic function, normal left ventricular cavity siz e, normal left ventricular wall thickness, ejection fraction estimated at 65%, stage I diastolic dys function, normal appearance and function of the mitral valve with trace physiologic regurgitation, n o hemodynamically significant aortic stenosis by Doppler, normal appearance of the tricuspid valve, estimated peak PA systolic pressure of 20 mmHg. The patient was evaluated by the orthopedic surgeon, and was taken to OR for left hip ORIF. The pat ient tolerated the procedure well and was taken to recovery room, which she has been in a great amou nt of pain. She has not been able to ambulate despite being on pain medication. Orthopedic surgery reevaluated the patient and on postoperative day 2, according to him, the patient is progressing we ll. The wound was dry, the dressing changed, neurovascular intact. It was recommended that patient follow up with him as an outpatient in 1 week. The patient was seen and evaluated by the ARU, which is acute rehabilitation, and unfortunately secondary to patient's lack of activity and unable to pa rticipate with the physical therapy as they requested, the patient did not qualify to be transferred to acute rehabilitation. This was discussed with the family and the patient. At this time, it is my opinion and physical therapy opinion, that the patient should be transferred to a [facility] facility for further evaluation and physical therapy. Regarding her blood pressure, blood pressure was well controlled on medication For deep venous throm bosis prophylaxis, the patient has been placed on Eliquis. For anxiety, the patient has been contin ued on Xanax. At this time, the patient is medically stable to be discharged to [facility] with close followup with the orthopedic surgeon as an outpatient. Dictated By: CATALINA JONES/LOBO Conf#: [id number] DID#: [id number]
[2016-08-28] MEDS: CEFTRIAXONE 1 GM/50 ML (PMX) 50 ML IVPB SCH (16:40)
[2016-08-28 20:05] VITALS: BP 138/63; RESP 16
[2016-08-29] MEDS: ALBUTEROL/IPRATROPIUM (NEB) 3 ML AMP HHN SCH ×3 (00:03→08:58)
[2016-08-29] MEDS: ACCU-CHEK XX SCH (02:59)
[2016-08-29] MEDS: morphine 2 MG INJ IV PRN ×2 (03:00→08:07)
[2016-08-29] MEDS: OXYCODONE/ACETAMINOPHEN (5/325) TAB PO PRN ×2 (04:58→10:05)
[2016-08-29 07:54] VITALS: BP 130/63; RESP 18
[2016-08-29] MEDS: INSULIN ASPART [NOVOLOG] 3 ML PEN SC SCH ×2 (07:58→07:59)
[2016-08-29] MEDS ORDERED: INSULIN GLARGINE [LANtus] 3 ML PEN SC SCH (08:00)
[2016-08-29] MEDS: POLYETHYLENE GLYCOL 17 GM PACKET PO SCH (08:07)
[2016-08-29] MEDS: APIXABAN 5 MG TABLET PO SCH (08:08)
[2016-08-29] MEDS: ALPRAZOLAM 0.25 MG TAB PO SCH (08:08)
[2016-08-29] MEDS: DILTIAZEM 30 MG TAB PO SCH (08:08)
[2016-08-29] MEDS: QUETIAPINE 25 MG TAB PO SCH (08:08)
[2016-08-29] MEDS: SALMETEROL/FLUTICASONE 250/50 INHA INH SCH (08:09)
[2016-08-29] MEDS: DOCUSATE SODIUM 250 MG CAP PO SCH (08:09)
--- NOTE | 2016-08-29 09:59 | PN ---
DATE: 08/29/2016 CARDIOLOGY FOLLOWUP SUBJECTIVE: Discussed patient status with the patient's son at the bedside. The patient apparently did not sleep well last night, stated he was anxious. Hip pain remains stable. No left-sided brice st pain or pressure. No wheezing. Has had some cough still. MEDICATIONS: Reviewed. PHYSICAL EXAMINATION: VITAL SIGNS: Temperature 98, heart rate of 81, blood pressure 130/63, respiration rate of 19, satur ating 97%. HEENT: Normocephalic, atraumatic. Thin female. Appears in no acute distress but anxious. Pupils equal and round. CARDIOVASCULAR: Regular rate and rhythm, systolic murmur. PULMONARY: With no wheezes heard now and no rhonchi. GASTROINTESTINAL: Soft, nontender. EXTREMITIES: Status post surgery. NEUROLOGIC: Awake and alert. PSYCHIATRIC: Anxious. LABORATORY: Glucose this morning is 144. ASSESSMENT AND PLAN 1. Hip fracture status post surgery. 2. Bronchitis/COPD, history of lung cancer. 3. Hypertension, under good control. 4. Diabetes, much better control now. 5. History of stage IV lung cancer. 6. Escherichia coli urinary tract infection. RECOMMENDATIONS: Antibiotic management as per internal medicine. Continue postop care. Deep venou s thrombosis prophylaxis to be continued. Blood pressure currently stable on the current regimen. Physical therapy and rehab as tolerated. Dictated By: WILBERTO DIEGO MD AV/LOBO Conf#: [id number] DID#: [id number] CC: CATALINA RODRIGUEZ MD;*[facility]*
[2016-08-29] MEDS: LORAZEPAM 2 MG INJ IV PRN (10:25)
[2016-08-29 10:28] VITALS: BP 141/63; PULSE 106
--- NOTE | 2016-08-29 13:40 | DS ---
DATE OF ADMISSION: 08/20/2016 DATE OF DISCHARGE: 08/29/2016 CONSULTANTS: 1. Dr. Scotty Justice. 1. Dr. Everardo Camarillo. 3. Dr. Kayleigh Dodson 4. aviation program manager. 5. Social Service. PROCEDURES: Status post open reduction internal fixation on 08/20/2016. DIAGNOSES: 1. Left hip fracture status post mechanical fall, status post open reduction internal fixation. 2. Hypertension. 3. Diabetes mellitus. 4. End-stage renal disease. 5. History of stage IV lung cancer. 6. History of anxiety. 7. Previous smoker. 8. Chronic obstructive pulmonary disease. 9. Escherichia coli urinary tract infection. 10. Constipation. 11. History of hemorrhoidectomy. MEDICATIONS: Please see my discharge summary from 08/28/2016. HOSPITAL COURSE: This is an 81-year-old female with past medical history of hypertension, diabetes mellitus, lung cancer, depression, anxiety, nicotine dependency in remission, who presented to [facility] at [facility] after having a mechanical fall on her left side at home wh en she had an argument with her was trying to get off of her couch to turn off the light and she had a slip and fall on the left side. She had excruciating pain. There was no loss of conscio usness, no head trauma. X-ray of the hip obtained, which showed intertrochanteric left femur fractu re approximately 90 degrees versus deformity. Orthopedic surgeon was consulted. The patient was ta aga to OR and had open reduction internal fixation of the left hip. She tolerated the procedure wel l and was taken to recovery room. The patient was then continued to be monitored by the medical bailey piper and was seen and evaluated by orthopedic surgeon, which patient was cleared at his standpoint for physical therapy and discharge to correction facility. The patient was seen and evaluated by diana LOVELL and unfortunately secondary to patient lack of activity unable to participate with physical t bandar as they requested. The patient did not qualify to be transferred to acute rehab. With the h elp of social service and the of the gearcase assembler, patient was able to be placed in a correction facility and after acceptance at [facility] and discussing the discharge with the family, the patient's , the patient's son, Danny, they have agreed the pat ient could to be transferred to correction facility. The patient was today discharged to SNF f or further evaluation and physical therapy. LABORATORIES: WBC 5.4, hemoglobin 8.9, hematocrit 28.5, platelets 395, glucose 144. CONDITION AT TIME OF DISCHARGE: Stable. Dictated By: CATALINA RODRIGUEZ MD PN/NTS Conf#: [id number] DID#: [id number]
--- NOTE | 2016-08-30 08:42 | RADRPT ---
Vent Rate: 109 bpm RR Interval: 0 msec WI Interval: 122 msec QRS Duration: 82 msec QT Interval: 322 msec QTC Interval: 433 msec P-R-T [place]: 64 - 47 - 69 degrees Sinus tachycardia Possible Left atrial enlargement Borderline ECG Electronically Signed By: Raheel Dove [id number]
== END 2016-08-29 10:40 | DRG 480 ==
LOC: E/R 00:39 → MS2 02:09
PROVIDERS: ADMIT Internal Medicine; ATTEND Internal Medicine
PROC: 0QS706Z Reposition Left Upper Femur with Intramedullary Internal Fixation Device, Open Approach (ICD-10-PCS; principal; 2016-08-20 17:00)
DX: S72.142A Displaced intertrochanteric fracture of left femur, initial encounter for closed fracture (principal); A41.9 Sepsis, unspecified organism; J44.1 Chronic obstructive pulmonary disease with (acute) exacerbation; N39.0 Urinary tract infection, site not specified; C34.90 Malignant neoplasm of unspecified part of unspecified bronchus or lung; E11.9 Type 2 diabetes mellitus without complications; I10 Essential (primary) hypertension; B96.20 Unspecified Escherichia coli [E. coli] as the cause of diseases classified elsewhere; W18.30XA Fall on same level, unspecified, initial encounter; E87.6 Hypokalemia; K59.00 Constipation, unspecified
CPT/HCPCS: 36600; 70450; 71010; 73510; 73520; 73530; 80048; 80053; 80076; 81001; 81003; 82550; 82553; 82803; 82962; 83036; 83735; 84100; 84484; 85025; 85610; 85730; 87086; 93005; 93306; 94640; 94664; 96374; 96375; 96376; 97110; 97163; 97530; C1713; J0690; J0696; J1100; J1170; J1630; J1650; J1815; J1885; J2060; J2250; J2270; J2405; J3475; J7030; J7042